=== PATIENT | male | born 1960 | race Caucasian/White ===

== ENCOUNTER 2017-11-30 03:13 | Inpatient (IN) | payer OTHER ==
[~2017-11-30] VITALS: Ht 170.2 cm; Wt 66.7 kg
--- NOTE | ~2017-11-30 | EKG ---
[place] [address] [facility] [place] [address] ELECTROCARDIOGRAM REPORT Name: KENA JACKSON Room #: 200-I ADM IN M.R.#: [id number] Admission: 11/30/17 Attend Phys: Jay Hutchins DO Discharge: Date of : 58 Report #: [id number] THIS REPORT FOR: //name// [facility] ED Test Date: 2017-11-30 Test Time: 03:22:45 Pat Name: KENA JACKSON Department: Room: 200 Gender: M Md Pediatric Allergist: SILVIA : 1960 Requested By: Sindy Cruz Order Number: [id number] MD: Tj Valero Measurements Intervals [place] Rate: 108 P: 79 TX: 127 QRS: -71 QRSD: 96 T: 107 QT: 346 QTc: 464 Interpretive Statements Sinus tachycardia Multiple ventricular premature complexes Inferior infarct, old Probable lateral infarct, age indeterminate Compared to ECG 04/25/2016 07:19:52 Heart rate has increased Electronically Signed On 11-30-2017 9:05:51 [employer]ARN[employer] by Tj Valero [email or web address] <ELECTRONICALLY SIGNED> By: Tj Valero MD, [facility] 11/30/1705 032 1 Tj Valero MD, [facility] /EPI
[~2017-11-30 03:13] MED LIST: ACETAMINOPHEN325 M1 PO; APAP500; APAP500 PO; ASPIRIN81 M2 PO; ATROVENT HFA INH; ATROVENT HFA14 GM INH; CARVEDILOL6.25 MG PO; CRESTOR10 MG PO; CRESTOR40 MG PO; FISH OIL 1,0001 EAC8 PO; FISH OIL 500 M1 EAC1 PO; FISH OIL 500 M1 EAC2 PO; IMDUR 60 MG TAB60 M1 PO; LIPITOR40 MG PO; LISINOPRIL10 MG PO; LISINOPRIL5 MG PO; LYRICA300 MG PO; MS CONTIN15 MG PO; NITROGLYCERIN0.4 MG SUBLING; NITROQUICK0.4 MG; OMEGA-3100 MG PO; PERCOCET 10-321 EAC1 PO; PERCOCET 10-321 EACH PO; PERCOCET 5-3251 EACH PO; PLAVIX 75 MG TA75 M1 PO; PLAVIX 75 MG TA75 MG PO; PREDNISONE 10 M10 M1 PO; PRILOSEC 20 MG20 MG PO; RANEXA500 MG PO; RANOLAZINE PO; RENEXA; SPIRIVA INH; TESSALON200 MG PO; TOPROL XL25 MG PO; TRAMADOL 50 MG50 MG PO; ZOFRAN4 MG PO; ZOLOFT100 MG PO
[2017-11-30 03:26] VITALS: BP 130/82
[2017-11-30 03:33] LABS: HEMATOCRIT 37.7 % (42.0-52.0); HEMOGLOBIN 13.1 gm/dL (14.0-18.0); MCH 31.8 pg (26.0-34.0); MCHC 34.8 g/dL (28.0-37.0); MCV 91.3 fL (80.0-100.0); PLATELET COUNT 263 thou/uL (150-400); RBC 4.13 mil/uL (4.50-6.00); RDW 13.8 % (10.5-14.5); WBC 6.9 thou/uL (4.0-11.0)
[2017-11-30 03:35] LABS: ANION GAP 11 mmol/L (7-16); BUN 9 mg/dL (7-18); CALCIUM 9.2 mg/dL (8.5-10.1); CHLORIDE 103 mmol/L (98-107); CO2 24 mmol/L (21-32); GLUCOSE 87 mg/dL (74-106); POTASSIUM 3.8 mmol/L (3.5-5.1); SODIUM 138 mmol/L (136-145)
[2017-11-30] MEDS ORDERED: TOPROL XL25 MG PO (03:37)
[2017-11-30 03:44] LABS: TROPONIN-I < 0.04 ng/mL (<0.06)
[2017-11-30 04:07] VITALS: BP 96/57
[2017-11-30 04:09] LABS: PROTIME 10.6 Seconds (9.3-11.4)
[2017-11-30 04:50] LABS: ABSOLUTE NEUTROPHILS 3.8 thou/uL (1.4-8.2); ANISOCYTOSIS SLIGHT; MYELOCYTES 1 %
[2017-11-30 04:54] VITALS: BP 96/57
[2017-11-30 05:11] VITALS: BP 118/83
[2017-11-30 09:56] LABS: CHOLESTEROL 209 mg/dL (<200); HDL CHOLESTEROL 39 mg/dL (>40); LDL CHOLESTEROL 148 mg/dL (<100); TC:HDL 5.4 Ratio (Not establshd); TRIGLYCERIDE 111 mg/dL (<150); TROPONIN-I < 0.04 ng/mL (<0.06); VLDL 22 mg/dL (<40)
[2017-11-30 11:09] VITALS: BP 111/59
[2017-11-30 13:42] VITALS: BP 117/76
[2017-11-30 17:12] LABS: GLYCOHEMOGLOBIN (HGB A1C) 5.1 % (4.8-5.6)
[2018-08-11] MEDS ORDERED: TOPROL XL25 MG PO (20:08)
== END 2017-11-30 16:00 | disposition home or self-care (01) | DRG 313 ==
LOC: ER 03:13 → EROBS 04:04 → 2N 04:58
PROVIDERS: Emergency Medicine; Nurse Practitioner Acute Care
DX: R07.89 Other chest pain (principal); I10 Essential (primary) hypertension; I25.10 Atherosclerotic heart disease of native coronary artery without angina pectoris; J44.9 Chronic obstructive pulmonary disease, unspecified; E78.00 Pure hypercholesterolemia, unspecified; F41.9 Anxiety disorder, unspecified; F17.210 Nicotine dependence, cigarettes, uncomplicated; I25.2 Old myocardial infarction; Z95.5 Presence of coronary angioplasty implant and graft; Z86.73 Personal history of transient ischemic attack (TIA), and cerebral infarction without residual deficits; Z95.810 Presence of automatic (implantable) cardiac defibrillator; Z79.82 Long term (current) use of aspirin; Z79.899 Other long term (current) drug therapy; Z91.14 Patient's other noncompliance with medication regimen; Z88.8 Allergy status to other drugs, medicaments and biological substances; Z82.49 Family history of ischemic heart disease and other diseases of the circulatory system; Z80.8 Family history of malignant neoplasm of other organs or systems
CPT/HCPCS: 10081

== ENCOUNTER 2018-02-06 20:55 | Emergency (ER) | payer OTHER ==
[~2018-02-06] VITALS: Ht 170.2 cm; Wt 70.3 kg
--- NOTE | ~2018-02-06 | EKG ---
[place] [address] [facility] [place] [address] ELECTROCARDIOGRAM REPORT Name: KENA JACKSON Room #: [facility] [id number] Admission: 02/06/18 Attend Phys: Discharge: 02/07/18 Date of : 58 Report #: [id number] THIS REPORT FOR: //name// [facility] ED Test Date: 2018-02-06 Test Time: 21:00:43 Pat Name: KENA JACKSON Department: Room: Gender: M Obiee Lead Developer: MZOOK : 1960 Requested By: Migue Abreu Order Number: [id number] MD: Tj Valero Measurements Intervals [place] Rate: 105 P: 56 SC: 130 QRS: -67 QRSD: 97 T: 87 QT: 339 QTc: 449 Interpretive Statements Sinus tachycardia Ventricular premature complex Inferior-posterior infarct, old Baseline wander in lead(s) V2 Compared to ECG 11/30/2017 03:22:45 No significant changes Electronically Signed On 02-08-2018 13:09:07 CDT by Tj Valero [email or web address] <ELECTRONICALLY SIGNED> By: Tj Valero MD, [facility] 02/08/18 1309 99 99 Tj Valero MD, FAC /EPI
[2018-02-06 21:17] LABS: RDW 13.4 % (10.5-14.5); WBC 8.8 thou/uL (4.0-11.0)
[2018-02-06 21:23] LABS: HEMATOCRIT 38.7 % (42.0-52.0); HEMOGLOBIN 13.2 gm/dL (14.0-18.0); MCH 30.9 pg (26.0-34.0); MCHC 34.2 g/dL (28.0-37.0); MCV 90.4 fL (80.0-100.0); PLATELET COUNT 329 thou/uL (150-400); RBC 4.28 mil/uL (4.50-6.00)
[2018-02-06 21:25] LABS: ANION GAP 12 mmol/L (7-16); BUN 12 mg/dL (7-18); CALCIUM 9.8 mg/dL (8.5-10.1); CHLORIDE 100 mmol/L (98-107); CO2 27 mmol/L (21-32); GLUCOSE 89 mg/dL (74-106); POTASSIUM 4.1 mmol/L (3.5-5.1); SODIUM 139 mmol/L (136-145)
[2018-02-06 21:34] LABS: TROPONIN-I < 0.04 ng/mL (<0.06)
[2018-02-06 21:56] LABS: AMP/METHAMP Negative (Negative); BARBITURATES Negative (Negative); BENZODIAZEPINES Negative (Negative); COCAINE Negative (Negative); METHADONE Negative (Negative); OPIATES Negative (Negative); PCP Negative (Negative)
[2018-02-06 22:00] LABS: ABSOLUTE NEUTROPHILS 5.5 thou/uL (1.4-8.2); ANISOCYTOSIS SLIGHT
[2018-02-07 00:30] VITALS: BP 124/69
[2018-08-11] MEDS ORDERED: TOPROL XL25 MG PO (20:08)
== END 2018-02-07 00:32 | disposition home or self-care (01) ==
LOC: ER 20:55
PROVIDERS: Emergency Medicine
DX: F41.9 Anxiety disorder, unspecified (principal); R07.89 Other chest pain; I10 Essential (primary) hypertension; J44.9 Chronic obstructive pulmonary disease, unspecified; F17.210 Nicotine dependence, cigarettes, uncomplicated; F10.99 Alcohol use, unspecified with unspecified alcohol-induced disorder; Z86.73 Personal history of transient ischemic attack (TIA), and cerebral infarction without residual deficits; Z95.5 Presence of coronary angioplasty implant and graft; Z88.6 Allergy status to analgesic agent; Z88.8 Allergy status to other drugs, medicaments and biological substances

== ENCOUNTER 2018-02-15 16:50 | Inpatient (IN) | payer OTHER ==
[~2018-02-15] VITALS: Ht 170.2 cm; Wt 77.2 kg
--- NOTE | ~2018-02-15 | HC ---
[facility] [address] [place] [address] CONSULTATION Name: KENA JACKSON Room #: 513-P [facility] IN M.R.#: [id number] Admission: 02/15/18 Attend Phys: Atif Capone MD Discharge: 02/23/18 Date of : 58 Report #: [id number] THIS REPORT FOR: //name// CC: Atif Capone [facility] unknown DATE OF SERVICE: 02/16/2018 HISTORY AND PHYSICAL/POSTADMISSION PHYSICIAN EVALUATION HISTORY OF PRESENT ILLNESS: The patient is a 57-year-old white male who was admitted to [facility] 02/09/2018 with left-sided weakness. He was diagnosed with an acute CVA. CT of the head was negative. He declined an MRI because he has permanent pacemaker. He was noted to have left-sided weakness with a decline in his premorbid functional status. This is actually his third stroke and he notes he has had them within the last year. He did receive TPA earlier in February of 2017. Seen by Cardiology and their recommendations were for an outpatient 30-day event monitor. He has been transferred from [facility] to [facility] for acute in-hospital inpatient rehabilitation. PAST MEDICAL HISTORY: There prior strokes within the last year or so as noted above. He has a history of coronary artery disease with multiple stents, ischemic cardiomyopathy with AICD. He has hypertension, hyperlipidemia, history of polysubstance abuse, and history of asthma. There is a note of some anxiety and he has degenerative arthritis. MEDICATIONS: Please see the full medication listing on admission. Each of these was individually reconciled and includes his vitamins herbals and supplements. HABITS: Positive tobacco, 2-3 cigarettes per day. Denies alcohol use. SOCIAL HISTORY: Lives alone in a [place] of the [facility]. He does have a couple of stairs to enter. He was previously independent with ADLs, modified independent for mobility with a single point cane. Has a daughter near him in the [facility] who was involved. REVIEW OF SYSTEMS: Did not offer any current complaints of chest pain, shortness of breath, or abdominal discomfort. He notes he has some left-sided weakness and some mild far left lateral visual field decrease. PHYSICAL EXAMINATION: GENERAL: The patient is a pleasant, somewhat verbose 57-year-old white male in no obvious distress. VITAL SIGNS: Temperature is 36.3, pulse 81, respirations 18, blood pressure [facility] [address] [place] [address] CONSULTATION Name: KENA JACKSON Room #: 513-P DIS IN M.R.#: [id number] Admission: 02/15/18 Attend Phys: Atif Capone MD Discharge: 02/23/18 Date of : 58 Report #: [id number] 111/79. The patient follows basic commands without difficulty. No obvious difficulties with word finding. EOMs are full. CHEST: Sounded clear to auscultation. CARDIOVASCULAR: Regular rate and rhythm. ABDOMEN: Bowel sounds positive, nontender. GENITOURINARY AND RECTAL: Deferred. NEUROLOGIC: Cranial nerves EOMs are full. Appears to have mild decreased with far lateral vision to the left upon testing visual june. HEENT: Facies are symmetric. EXTREMITIES: He has functional range of motion of both upper and lower extremities. Strength of the right upper and right lower extremity are full 5/5, left upper extremity is probably a 4 to 4-/5 left lower extremity is 4+/5 to 5-/5. DTRs are 1. Sensory examination appeared to be intact to simultaneous stimulation. He does quite well with basic functional mobility skills and nursing noted that he did well, getting up for them as well. ASSESSMENT: A 57-year-old right-handed white male with the following problem list: 1. Acute cerebrovascular accident with left-sided weakness, status post TPA on 02/09/2018 with improvement. 2. Mild left far lateral vision decrease. 3. Coronary artery disease with multiple stents. 4. Ischemic cardiomyopathy with automatic implantable cardioverter-defibrillator present. 5. Hypertension. 6. Hyperlipidemia. 7. History of polysubstance abuse. 8. History of asthma. 9. History of tobacco abuse. PLAN: The patient is admitted for in-hospital inpatient rehabilitation. From a post-admission physician evaluation perspective, there are no relevant changes since the preadmission screening. Please see the above review of prior and current medical and functional conditions and comorbidities. Please see the patient's previous and current functional status. As far as risk of complications, the patient has the above noted multiple medical comorbidities. Initial plan of care involves the interdisciplinary acute inpatient rehabilitation program with the goal of maximizing his functional independence, so that he can hopefully return back to his prior living situation. Measurable functional goals would be for him to become modified independent with transfers, mobility, ADLs and ideally to reach the single point cane level, so that he can return back to the home setting. Prognosis is reasonably good. Estimated length of stay is at this point approximately 1 week. Potential barriers would include his multiple medical comorbidities and decreased functional status. Discussion with the patient and with nursing. He has been getting up some on [facility] [address] [place] [address] CONSULTATION Name: KENA JACKSON Room #: 513-P [facility] IN Narendra#: [id number] Admission: 02/15/18 Attend Phys: Atif Capone MD Discharge: 02/23/18 Date of : 58 Report #: [id number] his own and does not want to call for assistance. He apparently was allowed to be up independently in his room over at [place]. Nursing indicated he did quite well. I will have the therapies do an evaluation and if he is cleared by the rehab therapy team. He can be modified independent in the room. I had a discussion with the patient regarding discharge plan as well. His goal is to be independent at a cane level as he knows, there are a lot of walks around the [facility], where he lives and he indicates that using a walker would be difficult. We set a tentative discharge date of 1 week with a plan for discharge next Wednesday. ADDENDUM: The overall plan of care is based on the preadmission screen, post-admission physician evaluation and information garnered from therapy assessments. 1. Estimated length of stay is one week as noted above. 2. Medical prognosis is reasonably good. 3. Anticipated interventions includes the interdisciplinary acute inpatient rehabilitation program with the goal of maximizing his functional independence, so he can hopefully return back to his prior living situation. 4. Anticipated functional outcomes would be for him to become modified independent and ambulatory at a cane level. 5. Discharge destination is back to the home setting as noted above. 6. Expected therapy by discipline includes PT and OT 1 to 1-1/2 hours per day each five days a week along with speech therapy one half to one hour per day, 5 days a week throughout the duration of the acute inpatient rehabilitation stay. We will need to see if he continues to need the speech therapy. May be able to transition more to just having PT and OT work with him. I have asked the hospitalist group to follow regarding medical issues. We will need to work outpatient event monitoring once he is ready for discharge. This may need to be set up through his doctor in the [facility]. <ELECTRONICALLY SIGNED> By: Atif Capone MD 02/22/18 1030 0750 1639 Atif Capone MD /[facility]
--- NOTE | ~2018-02-15 | HC ---
[facility] [address] [place] [address] CONSULTATION Name: KENA JACKSON Room #: 513-P [facility] IN M.R.#: [id number] Admission: 02/15/18 Attend Phys: Atif Capone MD Discharge: 02/23/18 Date of : 58 Report #: [id number] THIS REPORT FOR: //name// CC: Atif Capone [facility] unknown DATE OF SERVICE: 02/19/2018 NEUROBEHAVIORAL STATUS EXAM ATTENDING PHYSICIAN: Atif Capone MD EEG TECHNICIAN: Floyd Gandhi, PhD CLINICAL PRESENTATION: The patient is a 57-year-old male admitted to the rehab unit at [facility] for a comprehensive inpatient rehabilitation program to improve functional mobility, activities of daily living and self-care and mental status secondary to deficits from a cerebrovascular accident with left hemiparesis. The patient is status post TPA on February 09. His assessment on admission included a mild left lateral visual field decrease, coronary artery disease with multiple stents, ischemic cardiomyopathy with automatic implantable cardioverter defibrillator, hypertension, hyperlipidemia, history of polysubstance abuse, asthma and tobacco abuse. The patient describes problems with sleep with intermittent nightmares that are associated with the of 3-1/2-year-old grandson who had Down syndrome. The patient has 1 daughter and 2 living grandchildren. 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 TECHNIQUES UTILIZED: Clinical interview, review of medical records, staff consultation and behavioral observation, attempts at a mini mental status exam. EXAMINATION FINDINGS: The patient was alert, but irritable during the assessment. He presents as fidgety and restless, impulsive and and hostile. Patient has decreased patience and reduced tolerance for frustration. He reports having a longstanding history of methamphetamine abuse. His grandson reportedly in June 2017 and he relapsed to methamphetamine use until September of 2017. Currently, the patient reports being free from meth use or substance abuse. However, he reports concern about relapse and is wanting to acquire treatment to maintain sobriety. Psychiatric assessment suggests a diagnosis of posttraumatic stress disorder and amphetamine dependence in early remission. The patient reports difficulty with sleep, tiredness and fatigue, anxiety and depression. He does not report difficulty with appetite. He was angry and irritable during the interview with intermittent apology for his irritability. [address] [address] CONSULTATION Name: KENA JACKSON ISADORA Room #: 513-P [facility] IN M.R.#: [id number] Admission: 02/15/18 Attend Phys: Atif Capone MD Discharge: 02/23/18 Date of : 58 Report #: [id number] The patient indicates being right handed and having a left hemiparesis as a result of his stroke. This could indicate some variability in mood with decreased inhibition and increased impulsivity. DIAGNOSTIC IMPRESSION: Neurocognitive disorder due to vascular disease, with irritability and decreased tolerance for frustration -- extent to be determined. Posttraumatic stress disorder. Unspecified anxiety disorder. Methamphetamine abuse -- by history -- early abstinence. RECOMMENDATIONS: The patient appears easily frustrated and overwhelmed at this time. Distraction and redirection may be of some benefit in attempts to maintain compliance. Most likely he will need a modified rehabilitation program that includes negotiation to allow him opportunities for control to improve compliance. Continued psychiatric management of medication for mood and behavior will be necessary to maintain his cooperation. Following discharge, he will require a treatment program that will be focused on substance abuse, depression/anxiety, and irritability. Psychological counseling will be of benefit to assist in overall adjustment to the stress of losing his grandson and adjusting to his current medical condition following his stroke. Follow up neuropsych evaluation will be of benefit to clarify neurocognitive status. At this time, the patient lacks frustration tolerance necessary to complete an evaluation. Thank you very much for allowing me to provide the consultation on this patient. <ELECTRONICALLY SIGNED> By: Floyd Gandhi, PhD 02/21/18 1833 1333 1443 Floyd Gandhi, PhD /nt
[2018-02-15] MEDS ORDERED: ASA5UEC PO (19:55)
[2018-02-15] MEDS ORDERED: XANAX 0.5 MG0.5 MG PO (19:55)
[2018-02-15] MEDS ORDERED: PLAVIX 75 MG TA75 M1 PO (19:56)
[2018-02-15] MEDS ORDERED: PERCOCET 7.5-31 EACH PO (19:57)
[2018-02-15] MEDS ORDERED: TOPROL XL25 MG PO (19:57)
[2018-02-15] MEDS ORDERED: RANEXA500 MG PO (19:58)
[2018-02-15] MEDS ORDERED: LYRICA300 MG PO (19:58)
[2018-02-15] MEDS ORDERED: CRESTOR40 MG PO (19:59)
[2018-02-15 20:00] VITALS: BP 110/70
[2018-02-15] MEDS ORDERED: SPIRIVA INH (20:00)
[2018-02-15] MEDS ORDERED: TRAZODONE HCL50 MG PO (20:01)
[2018-02-16 07:22] VITALS: BP 111/79
[2018-02-16 08:49] LABS: HEMATOCRIT 36.3 % (42.0-52.0); HEMOGLOBIN 12.2 gm/dL (14.0-18.0); MCH 30.3 pg (26.0-34.0); MCHC 33.6 g/dL (28.0-37.0); MCV 90.4 fL (80.0-100.0); RBC 4.02 mil/uL (4.50-6.00); RDW 13.5 % (10.5-14.5); WBC 6.9 thou/uL (4.0-11.0)
[2018-02-16 08:58] LABS: CALCIUM 9.2 mg/dL (8.5-10.1); POTASSIUM 4.3 mmol/L (3.5-5.1)
[2018-02-16 18:05] LABS: FOLIC ACID 10.4 ng/mL (8.6-58.9)
[2018-02-16 19:00] VITALS: BP 118/75
[2018-02-17 07:40] VITALS: BP 102/74
[2018-02-17 20:09] VITALS: BP 113/76
[2018-02-18 07:00] VITALS: BP 108/75
[2018-02-18 19:53] VITALS: BP 125/73
[2018-02-19 08:15] VITALS: BP 114/55
[2018-02-19 19:33] VITALS: BP 123/78
[2018-02-20 08:00] VITALS: BP 112/62
[2018-02-20 19:35] VITALS: BP 115/73
[2018-02-21 07:20] VITALS: BP 100/60
[2018-02-21 20:05] VITALS: BP 115/73
[2018-02-22 08:15] VITALS: BP 104/58
[2018-02-22 20:45] VITALS: BP 100/48
[2018-02-23] MEDS ORDERED: VITAMIN B-12500 MCG PO (11:38)
[2018-02-23] MEDS ORDERED: ERGOCALCIF50000 UNIT PO (11:38)
[2018-02-23] MEDS ORDERED: RANEXA500 MG PO (11:38)
[2018-02-23] MEDS ORDERED: PLAVIX 75 MG TA75 M1 PO (11:38)
[2018-02-23] MEDS ORDERED: TOPROL XL25 MG PO (11:38)
[2018-02-23] MEDS ORDERED: CRESTOR40 MG PO (11:38)
[2018-02-23] MEDS ORDERED: SPIRIVA INH (11:38)
[2018-02-23] MEDS ORDERED: PRAZOSIN HCL1 MG PO (11:39)
[2018-02-23 12:00] VITALS: BP 121/65
[2018-02-23 12:33] VITALS: BP 121/65
== END 2018-02-23 12:35 | disposition home or self-care (01) | DRG 56 ==
PROVIDERS: Physical Medicine & Rehabilitation
DX: G81.94 Hemiplegia, unspecified affecting left nondominant side (principal); I63.9 Cerebral infarction, unspecified; I25.10 Atherosclerotic heart disease of native coronary artery without angina pectoris; I25.5 Ischemic cardiomyopathy; I10 Essential (primary) hypertension; E78.5 Hyperlipidemia, unspecified; J45.909 Unspecified asthma, uncomplicated; F41.9 Anxiety disorder, unspecified; M19.90 Unspecified osteoarthritis, unspecified site; F17.210 Nicotine dependence, cigarettes, uncomplicated; R41.9 Unspecified symptoms and signs involving cognitive functions and awareness; G62.9 Polyneuropathy, unspecified; F32.9 Major depressive disorder, single episode, unspecified; R53.81 Other malaise; E53.8 Deficiency of other specified B group vitamins; E55.9 Vitamin D deficiency, unspecified; G47.00 Insomnia, unspecified; F43.10 Post-traumatic stress disorder, unspecified; F15.21 Other stimulant dependence, in remission; Z95.5 Presence of coronary angioplasty implant and graft; Z95.810 Presence of automatic (implantable) cardiac defibrillator; Z88.1 Allergy status to other antibiotic agents; Z79.82 Long term (current) use of aspirin; Z79.899 Other long term (current) drug therapy; Z60.2 Problems related to living alone; Z88.8 Allergy status to other drugs, medicaments and biological substances
CPT/HCPCS: 10112

== ENCOUNTER 2018-03-19 18:33 | Inpatient (IN) | payer OTHER ==
[~2018-03-19] VITALS: Ht 170.2 cm; Wt 68.0 kg
--- NOTE | ~2018-03-19 | EKG ---
[place] [address] [facility] [place] [address] ELECTROCARDIOGRAM REPORT Name: KENA JACKSON Room #: 349-I ADM IN M.R.#: [id number] Admission: 03/19/18 Attend Phys: Nolan Jiménez Discharge: Date of : 58 Report #: [id number] THIS REPORT FOR: //name// [facility] ED Test Date: 2018-03-19 Test Time: 18:51:02 Pat Name: KENA JACKSON Department: Room: 349 Gender: M Crayon Molding Machine Operator: Roque CAMERON : 1960 Requested By: Sindy Cruz Order Number: [id number] MD: Tj Valero Measurements Intervals [place] Rate: 86 P: 25 TX: 141 QRS: -66 QRSD: 115 T: 102 QT: 390 QTc: 467 Interpretive Statements Sinus rhythm Atrial premature complex Left axis deviation Inferior infarct, old Baseline wander in lead(s) V2 Compared to ECG 02/06/2018 21:00:43 Atrial premature complex(es) now present Sinus tachycardia no longer present Ventricular premature complex(es) no longer present Electronically Signed On 03-20-2018 12:08:36 CDT by Tj Valero [email or web address] <ELECTRONICALLY SIGNED> By: Tj Valero MD, [facility] 03/20/18 1208 50 50 Tj Valero MD, FAC /EPI
[~2018-03-19 18:33] MED LIST changes: +ASA5UEC PO; +ERGOCALCIF50000 UNIT PO; +PERCOCET 7.5-31 EACH PO; +PRAZOSIN HCL1 MG PO; +TRAZODONE HCL50 MG PO; +VITAMIN B-12500 MCG PO; +XANAX 0.5 MG0.5 MG PO
[2018-03-19 18:45] VITALS: BP 127/72
[2018-03-19 19:06] LABS: ABSOLUTE NEUTROPHILS 5.5 thou/uL (1.4-8.2); BASOPHILS 0.6 % (0.0-2.0); EOSINOPHILS 8.1 % (0.0-3.0); HEMATOCRIT 36.5 % (42.0-52.0); HEMOGLOBIN 12.5 gm/dL (14.0-18.0); LYMPHOCYTES 15.1 % (24.0-44.0); MCH 30.6 pg (26.0-34.0); MCHC 34.1 g/dL (28.0-37.0); MCV 89.6 fL (80.0-100.0); MONOCYTES 7.8 % (1.0-8.0); POLYS 68.4 % (36.0-66.0); RBC 4.07 mil/uL (4.50-6.00); WBC 8.1 thou/uL (4.0-11.0)
[2018-03-19 19:07] LABS: PLATELET COUNT 249 thou/uL (150-400)
[2018-03-19 19:12] LABS: POC CA IONIZED 4.5 mg/dL (4.5-5.3); POC CREATININE 1.3 mg/dL (0.6-1.3); POC HEMOGLOBIN 13.3 g/dL (14.0-18.0)
[2018-03-19 20:25] VITALS: BP 127/75
[2018-03-19 21:15] VITALS: BP 119/85
[2018-03-19 21:36] VITALS: BP 125/66
[2018-03-19 21:37] VITALS: BP 125/66
[2018-03-19 22:15] VITALS: BP 119/85
[2018-03-20 00:16] VITALS: BP 91/57
[2018-03-20 10:04] LABS: AMP/METHAMP Negative (Negative); BARBITURATES Negative (Negative); BENZODIAZEPINES POSITIVE (Negative); COCAINE Negative (Negative); METHADONE Negative (Negative); OPIATES POSITIVE (Negative); PCP Negative (Negative)
[2018-03-20 11:08] LABS: CHOLESTEROL 129 mg/dL (<200); HDL CHOLESTEROL 25 mg/dL (>40); LDL CHOLESTEROL 65 mg/dL (<100); SERUM ASSESSMENT Clear; TC:HDL 5.2 Ratio (Not establshd); TRIGLYCERIDE 196 mg/dL (<150); VLDL 39 mg/dL (<40)
[2018-03-20 11:38] VITALS: BP 99/41
[2018-03-20 15:09] LABS: GLYCOHEMOGLOBIN (HGB A1C) 5.1 % (4.8-5.6)
[2018-03-20 16:24] VITALS: BP 98/53
[2018-03-20 20:15] VITALS: BP 108/72
[2018-03-21 05:15] VITALS: BP 84/49
[2018-03-21 07:59] VITALS: BP 157/68
[2018-03-21 09:43] VITALS: BP 101/43
[2018-03-21 17:11] VITALS: BP 111/76
[2018-03-21 19:00] VITALS: BP 90/47
[2018-03-22 04:40] VITALS: BP 89/49
[2018-03-22 07:53] VITALS: BP 92/61
[2018-03-22] MEDS ORDERED: FOLIC ACID1 MG PO (09:55)
[2018-03-22] MEDS ORDERED: VITAMIN B-1100 M2 PO (09:55)
== END 2018-03-22 16:30 | DRG 74 ==
LOC: ER 18:33 → 3W 20:12 → EROBS 20:12 → 3W 21:37
PROVIDERS: Emergency Medicine; Hospitalist
PROC: 4A00X4Z Measurement of Central Nervous Electrical Activity, External Approach (ICD-10-PCS; principal; 2018-03-21)
DX: G62.9 Polyneuropathy, unspecified (principal); R20.2 Paresthesia of skin; I10 Essential (primary) hypertension; E78.00 Pure hypercholesterolemia, unspecified; F10.10 Alcohol abuse, uncomplicated; F17.210 Nicotine dependence, cigarettes, uncomplicated; F15.10 Other stimulant abuse, uncomplicated; I25.2 Old myocardial infarction; Z86.73 Personal history of transient ischemic attack (TIA), and cerebral infarction without residual deficits; Z95.810 Presence of automatic (implantable) cardiac defibrillator; Z79.02 Long term (current) use of antithrombotics/antiplatelets; Z79.82 Long term (current) use of aspirin; Z79.899 Other long term (current) drug therapy; Z88.8 Allergy status to other drugs, medicaments and biological substances
CPT/HCPCS: 10779; 10879

== ENCOUNTER 2018-11-18 17:08 | Inpatient (IN) | payer OTHER ==
[~2018-11-18] VITALS: Ht 170.2 cm; Wt 68.8 kg
--- NOTE | ~2018-11-18 | EKG ---
[address] [address] ELECTROCARDIOGRAM REPORT Name: KENA JACKSON Room #: 204-P ADM IN M.R.#: [id number] Admission: 11/18/18 Attend Phys: Nolan Jiménez Discharge: Date of : 58 Report #: [id number] THIS REPORT FOR: //name// [facility] ED Test Date: 2018-11-18 Test Time: 17:13:09 Pat Name: KENA MAKUGHLIN Department: Room: 204 Gender: M Backfiller: LEATHA : 1960 Requested By: Marlon Alfaro Order Number: [id number] MD: Robert Westfall Measurements Intervals [place] Rate: 112 P: 61 OR: 123 QRS: -67 QRSD: 93 T: 85 QT: 362 QTc: 494 Interpretive Statements Sinus tachycardia Ventricular bigeminy Probable left atrial enlargement Abnormal R-wave progression, early transition Inferior infarct, old Myocardial infarct finding now present T-wave abnormality now present Possible ischemia now present Sinus rhythm no longer present Left anterior fascicular block no longer present Electronically Signed On 11-18-2018 20:23:23 COOK HOUSE SUPERVISOR by Robert Westfall [email or web address] <ELECTRONICALLY SIGNED> By: Robert Westfall MD 11/18/182022 12 12 Robert Westfall MD /EPI
[~2018-11-18 17:08] MED LIST changes: +FOLIC ACID1 MG PO; +VITAMIN B-1100 M2 PO
[2018-11-18 17:14] VITALS: BP 115/76
[2018-11-18 17:43] LABS: HEMATOCRIT 35.4 % (42.0-52.0); HEMOGLOBIN 12.3 gm/dL (14.0-18.0); MCHC 34.6 g/dL (28.0-37.0); MCV 86.8 fL (80.0-100.0); PLATELET COUNT 307 thou/uL (150-400); RBC 4.08 mil/uL (4.50-6.00); WBC 6.1 thou/uL (4.0-11.0)
[2018-11-18 17:48] LABS: ANION GAP 12 mmol/L (7-16); BUN 13 mg/dL (7-18); CALCIUM 9.4 mg/dL (8.5-10.1); CHLORIDE 98 mmol/L (98-107); CO2 26 mmol/L (21-32); GLUCOSE 101 mg/dL (74-106); POTASSIUM 3.9 mmol/L (3.5-5.1); SODIUM 136 mmol/L (136-145)
[2018-11-18 17:57] LABS: ALBUMIN 3.4 g/dL (3.4-5.0); SALICYLATE 3.8 mg/dL (2.8-20.0); SGOT 30 U/L (15-37); SGPT 26 U/L (30-65); TOTAL BILIRUBIN 0.4 mg/dL (<0.1-1.0); TOTAL PROTEIN 7.9 g/dL (6.4-8.2); TROPONIN-I <0.06 ng/mL (<0.06)
[2018-11-18 18:05] LABS: ABSOLUTE NEUTROPHILS 3.3 thou/uL (1.4-8.2)
[2018-11-18 18:06] LABS: ANISOCYTOSIS 1+
[2018-11-18 18:57] VITALS: BP 107/49
[2018-11-18 19:30] VITALS: BP 102/36
[2018-11-18 20:11] VITALS: BP 111/62
[2018-11-19 00:10] VITALS: BP 94/48
[2018-11-19 00:14] LABS: URINE BILIRUBIN NEGATIVE (Negative); URINE BLOOD NEGATIVE (Negative); URINE CLARITY CLEAR; URINE COLOR YELLOW; URINE GLUCOSE-RANDOM* NEGATIVE (Negative); URINE KETONES TRACE (Negative); URINE LEUKOCYTES-REFLEX NEGATIVE (Negative); URINE NITRITE-REFLEX NEGATIVE (Negative); URINE PROTEIN (DIPSTICK) NEGATIVE (Negative); URINE SPECIFIC GRAVITY 1.015 (1.005-1.035)
[2018-11-19 00:27] LABS: AMP/METHAMP POSITIVE (Negative); BARBITURATES Negative (Negative); BENZODIAZEPINES Negative (Negative); COCAINE Negative (Negative); METHADONE Negative (Negative); OPIATES Negative (Negative); PCP Negative (Negative)
[2018-11-19 04:37] LABS: ANION GAP 10 mmol/L (7-16); BUN 11 mg/dL (7-18); CALCIUM 8.5 mg/dL (8.5-10.1); CHLORIDE 102 mmol/L (98-107); CO2 26 mmol/L (21-32); CREATININE 0.8 mg/dL (0.7-1.3); GLUCOSE 97 mg/dL (74-106); POTASSIUM 3.2 mmol/L (3.5-5.1); SODIUM 138 mmol/L (136-145)
[2018-11-19 04:38] VITALS: BP 93/49
[2018-11-19 04:47] LABS: ALBUMIN 2.8 g/dL (3.4-5.0); TROPONIN-I <0.06 ng/mL (<0.06)
[2018-11-19 07:10] VITALS: BP 105/54
[2018-11-19 12:31] VITALS: BP 105/54
== END 2018-11-19 13:55 | DRG 313 ==
LOC: ER 17:08 → EROBS 18:28 → 2N 19:52
PROVIDERS: Emergency Medicine; Hospitalist
DX: R07.9 Chest pain, unspecified (principal); I10 Essential (primary) hypertension; E78.00 Pure hypercholesterolemia, unspecified; J44.9 Chronic obstructive pulmonary disease, unspecified; F15.10 Other stimulant abuse, uncomplicated; F17.210 Nicotine dependence, cigarettes, uncomplicated; G89.29 Other chronic pain; Z95.5 Presence of coronary angioplasty implant and graft; I25.2 Old myocardial infarction; Z86.73 Personal history of transient ischemic attack (TIA), and cerebral infarction without residual deficits; Z95.0 Presence of cardiac pacemaker; Z88.6 Allergy status to analgesic agent; Z88.8 Allergy status to other drugs, medicaments and biological substances; Z79.82 Long term (current) use of aspirin; Z79.899 Other long term (current) drug therapy
CPT/HCPCS: 10081

== ENCOUNTER 2019-03-11 19:51 | Inpatient (IN) | payer OTHER ==
[~2019-03-11] VITALS: Ht 175.3 cm; Wt 62.6 kg
--- NOTE | ~2019-03-11 | HC ---
[facility] [address] [place] [address] CONSULTATION Name: KENA JACKSON Room #: 358-P ADM IN M.R.#: [id number] Admission: 03/11/19 ������������������ Attend Phys: Angel Luis Dunbar MD Discharge: ������������������ Date of : 58 Report #: [id number] THIS REPORT FOR: //name// CC: [facility] physician/PCP Angel Luis Dunbar REASON FOR CONSULTATION: Chest pain. The patient is a 58-year-old male. PAST MEDICAL HISTORY: Includes coronary artery disease, status post IN and stents, prior ICD implantation, COPD, hypertension, hyperlipidemia, gastritis, CVA. HISTORY OF PRESENT ILLNESS: I saw the patient back in 07/2018 when he came in with chest discomfort. He has history of drug abuse including meth. When I saw him last time, he had been discharged from [facility] and sent to rehab facility, but did not like the living situation; therefore, he left AMA and came to the ER. At that time, his chest pain did not seem cardiac in nature. He comes back today after having used meth. He has been having some chest pain that is pretty much there all the time, 7/10 in intensity, is at the chest and is not really alleviated with rest or exertion. REVIEW OF SYSTEMS: A 12-point review of systems. GENERAL: No fevers or chills. HEENT: No blurred vision. CARDIOVASCULAR: As above. PULMONARY: No productive cough. GASTROINTESTINAL: No nausea or vomiting. GENITOURINARY: No dysuria. MUSCULOSKELETAL: No myalgias or arthralgias. ENDOCRINE: No heat or cold intolerance. NEUROLOGIC: As mentioned above. SOCIAL HISTORY: He does use meth and tobacco, last used meth a few days ago. FAMILY HISTORY: Noncontributory. ALLERGIES: INCLUDE ALBUTEROL AND IBUPROFEN. MEDICATIONS: Have been reviewed. PHYSICAL EXAMINATION: VITAL SIGNS: Temperature is 36.8, pulse 89, respiration 17, blood pressure 126/72, sats are 96%. GENERAL: He is in no acute distress. He is somewhat irritable and agitated. HEENT: Oropharynx is clear. Poor dentition. Sclerae are anicteric. [facility] [address] [place] [address] CONSULTATION Name: KENA JACKSON ISADORA Room #: 358-P ADM IN M.R.#: [id number] Admission: 03/11/19 ������������������ Attend Phys: Angel Luis Dunbar MD Discharge: ������������������ Date of : 58 Report #: [id number] NECK: Supple, no thyromegaly. HEART: Regular rate and rhythm with no murmurs, rubs, gallops. LUNGS: Clear to auscultation bilaterally. ABDOMEN: Soft, nontender, nondistended with no hepatosplenomegaly. EXTREMITIES: There is no clubbing, cyanosis or edema. NEUROLOGICAL: Cranial nerves 2-12 are intact. His 12-lead EKG, I reviewed, shows sinus rhythm with no ischemic changes and occasional PVCs. His CT of the chest shows no acute process, no PE. His nuclear stress test shows evidence of an old IN with some mild tamanna-infarct ischemia, but no new evidence of ischemia noted. LABORATORY DATA: White count 5.8, hemoglobin 12, platelets 264. Chemistries: Sodium 141, potassium 3.8, BUN 7, creatinine 0.9. His troponins are negative x 3. ASSESSMENT: 1. Noncardiac chest pain. 2. Possible costochondritis. 3. Coronary artery disease, status post myocardial infarction. 4. Ischemic cardiomyopathy. 5. Implantable cardiac defibrillator. 6. Polysubstance. RECOMMENDATION: The patient is a 58-year-old presenting with chest pain that is noncardiac in nature. Given its long duration that is not alleviated, normal troponins, normal EKG, normal CT scan of the chest as well as normal nuclear stress test with evidence of an old inferior IN, I do not believe this chest pain is cardiac in nature. It is possible that he has a component of costochondritis. Perhaps, a course of nonsteroidal anti-inflammatory drugs should be considered. As such, I will sign off. Thank you for allowing me to participate in his care. ��������������������������������������������� ���������������������������������������� By: ��������������������������������������������� 1705 0635 Robert Westfall MD /nt
[2019-03-11 20:09] VITALS: BP 114/51
[2019-03-11 20:24] LABS: BASOPHILS 1.4 % (0.0-2.0); EOSINOPHILS 4.7 % (0.0-3.0); HEMATOCRIT 34.6 % (42.0-52.0); LYMPHOCYTES 29.7 % (24.0-44.0); MCH 30.5 pg (26.0-34.0); MCHC 34.6 g/dL (28.0-37.0); MCV 88.3 fL (80.0-100.0); MONOCYTES 11.9 % (1.0-8.0); PLATELET COUNT 264 thou/uL (150-400); POLYS 52.3 % (36.0-66.0); RBC 3.92 mil/uL (4.50-6.00); RDW 14.8 % (10.5-14.5); WBC 5.8 thou/uL (4.0-11.0)
[2019-03-11 20:34] LABS: ANION GAP 12 mmol/L (7-16); BUN 4 mg/dL (7-18); CALCIUM 9.5 mg/dL (8.5-10.1); CHLORIDE 103 mmol/L (98-107); CO2 26 mmol/L (21-32); CREATININE 0.9 mg/dL (0.7-1.3); GLUCOSE 92 mg/dL (74-106); POTASSIUM 3.4 mmol/L (3.5-5.1); SODIUM 141 mmol/L (136-145)
[2019-03-11 20:43] LABS: TROPONIN-I <0.06 ng/mL (<0.06)
[2019-03-11 21:58] VITALS: BP 114/51
[2019-03-11 22:08] VITALS: BP 99/59
[2019-03-11 22:50] VITALS: BP 122/58; BP 122/85
[2019-03-12 04:22] LABS: ANION GAP 13 mmol/L (7-16); BUN 3 mg/dL (7-18); CHLORIDE 102 mmol/L (98-107); CO2 24 mmol/L (21-32); CREATININE 0.8 mg/dL (0.7-1.3); GLUCOSE 90 mg/dL (74-106); SODIUM 139 mmol/L (136-145)
[2019-03-12 04:29] LABS: TROPONIN-I <0.06 ng/mL (<0.06)
[2019-03-12 04:50] VITALS: BP 128/79
--- NOTE | 2019-03-12 05:54 | NUR ---
PT ARRIVED FROM ER VIA CART WITH WAREHOUSE REPRESENTATIVE. PLACED IN ROOM 358. ADMISSION ASSESEMENTS COMPLETED. PT ALSO ARRIVED TO THE ROOM WITH SECURITY. PT WAS REPORTEDLY ARGUMENTATIVE AND VERBALLY HOSTILE IN ER. PT VERY DROWSY AND HAD TO BE AWOKENED MULTIPLE TIMES TO ANSWER QUESTIONS. PT REFUSED SCD, REFUSED TO SIGN NO FALL CONTRACT AND REFUSED TO HAVE THE BED ALARM TURNED ON. FOOD PROVIDED FOR PT AT HIS REQUEST. PT HAS SLEPT THROUGHOUT THE NIGHT. RELUCTANTLY ALLOWED LAB TO DRAW HIS BLOOD THIS MORNING. DID RATE CHEST DISCOMFORT AT 4/10 WITH RADIATION UP TO LEFT SHOULDER. DENIED ANY OTHER SX. CONTINUE TO MONITOR.
[2019-03-12 07:34] VITALS: BP 95/57
--- NOTE | 2019-03-12 11:42 | NUR ---
care of pt assumed this am @ ~0700. pt noted to be sleeping heavily this am, noted to be irritable when awaken for vs and assessment, refusing parts of vs and requesting to be left to sleep and rn to return later. rn returned at 1000 for assessment. pt awakened to eat his breakfast, take some of his am medications and assessment. pt abrupt, irritable and short in answers to rn. pt very concerned at the where abouts of his cell phone and flaking roll operator, he found them in his clothing in his closet and had some stress relief after finding them. pt denies co pain at this am's assessment. he desired to eat, take his meds, receive a cup of coffee and be left to go back to sleep. pt bed alarm on and rn requested he call staff if he desired to get out of bed for any reason, he said he would call. pt denies soa, n/v/d and no need to void at this time.
[2019-03-12 15:16] VITALS: BP 96/55
[2019-03-12 16:26] LABS: CALCIUM 9.1 mg/dL (8.5-10.1); CREATININE 0.9 mg/dL (0.7-1.3); MAGNESIUM 1.9 mg/dL (1.8-2.4); POTASSIUM 3.8 mmol/L (3.5-5.1)
[2019-03-12 19:18] VITALS: BP 103/52
--- NOTE | 2019-03-12 23:44 | EKG ---
[address] [place] [address] ELECTROCARDIOGRAM REPORT Name: KENA JACKSON Room #: 358-P ADM IN M.R.#: [id number] ������������������ Admission: 03/11/19 ������������������ Attend Phys: Angel Luis Dunbar MD Discharge: ������������������ Date of : 58 Report #: [id number] ����������������������������������������������������������������� [id number] THIS REPORT FOR: //name// [facility] ED Test Date: 2019-03-11 Test Time: 20:01:47 Pat Name: KENA JACKSON Department: Room: 358 Gender: M Nurse Clinician: barbara : 1960 Requested By: Yoanna Sweeney Order Number: [id number] MD: Roberto Juarez Measurements Intervals [place] Rate: 98 P: 70 AR: 129 QRS: -51 QRSD: 96 T: 101 QT: 378 QTc: 483 Interpretive Statements Sinus tachycardia frequent ventricular ectopics Left anterior fascicular block Nonspecific ST/T abnormalities, lateral leads Borderline prolonged QT interval Baseline wander in lead(s) V1 Compared to ECG 11/18/2018 17:13:09 no significant changes Electronically Signed On 03-12-2019 23:43:47 CDT by Roberto Juarez [email or web address] ��������������������������������������������� <ELECTRONICALLY SIGNED> ���������������������������������������� By: Roberto Juarez MD ��������������������������������������������� 03/12/19 2343 00 00 Roberto Juarez MD /EPI
--- NOTE | 2019-03-12 23:54 | EKG ---
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: MELISSA : 1960 Requested By: nAgel Luis Dunbar Order Number: [id number] MD: Roberto Juarez Measurements Intervals [place] Rate: 91 P: 67 [place]: 129 QRS: -69 QRSD: 101 T: 129 QT: 380 QTc: 468 Interpretive Statements Sinus rhythm Ventricular ectopics poor R-wave progression Non specific ST/T wave changes Compared to ECG 11/18/2018 17:13:09 no significant changes Electronically Signed On 03-12-2019 23:54:14 CDT by Roberto Juarez [email or web address] ��������������������������������������������� <ELECTRONICALLY SIGNED> ���������������������������������������� By: Roberto Juarez MD ��������������������������������������������� 03/12/19 0224 0755 0755 Roberto Juarez MD /EPI
[2019-03-13 03:23] VITALS: BP 102/64
--- NOTE | 2019-03-13 03:25 | NUR ---
Patient making slow progress towards outcome goals. Very irritable. No c/o chest pain up to this time. NPO after MN for stress test. Informed of need for urine specimen. Metoprolol held per parameters. Rhythm unchanges sinus with frequent PVC's, Bigem, Trigeminy. Steady gait. Poor personal hygeine, declined to get cleaned up.
--- NOTE | 2019-03-13 05:00 | NUR ---
Patient stormed out of him room demanding to get his water pitcher back, NPO after MN has been fully explained to patient long before MN when Stress test was ordered. States he will drink water out of the faucet if he needs to. Patient calmly informed test may not be done if he drinks now. Patient states he will have a drink and get the test done, voice getting louder and confrontational with staff. Nursing cytotechnologist/cytology supervisor called to unit with security who spoke to patient. Orders received for IVFluids. Patient advised again about urine specimen collection. Xanax given with a small sip of liquids.
--- NOTE | 2019-03-13 06:28 | NUR ---
Patient now asleep. Fluid bolus given.
[2019-03-13 07:17] VITALS: BP 96/44
--- NOTE | 2019-03-13 14:15 | NUR ---
Municipal Engineer sent initial referral to [facility] for ltc placement. Patient likely to discharge today or tomorrow. DP will contact admissions to let them know of incoming referral.
--- NOTE | 2019-03-13 14:15 | NUR ---
ASSESSMENT: CM REVIEWED CHART AND MET WITH PATIENT AT THE BEDSIDE. PT IS ALERT AND ORIENTED X4. CM ATTEMPTED TO ASK PATIENT WHERE HE WAS LIVING PRIOR TO ADMISSION. PT THEN STATED THAT DOES NOT MATTER WHAT MATTERS IS THIS MINUTE FORWARD, AND I WANT TO GO USP CARE SOMEWHERE BECAUSE THAT IS THE ONLY PLACE I HAVE LIVED WHERE I STAY SOBER. PT HAS A HX OF BEING AT [facility] FOR LTC BUT THEN REFUSED TO GO BECAUSE HE DID NOT WANT TO GIVE UP HIS SS CHECK. PT HOWEVER STATES HE DID LIVE THERE AND THEN WAS DISCHARGED ON GOOD TERMS BECAUSE HE WANTED TO LEAVE. PT REQUESTING TO SEE IF HE CAN GO BACK THERE FOR LTC. CM REQUESTED D/C EEG TECHNICIAN TO SEND A REFERRAL FOR [facility] TO SEE IF THEY CAN ACCEPT HIM. PT REPORTS HE IS FULLY INDEPENDENT WITH ADLS AND AMBULATION. PER OUR NOTES PATIENT HAS ALSO LIVED WITH A GIRLFRIEND AT THE [facility] IN THE PAST. PT REPORTS HE HAS BEEN USING METH BUT WANTS TO MOVE FORWARD WITH HIS LIFE AND NO LONGER USE. CM WILL CONTINUE TO FOLLOW TO ASSIST NEEDED.
[2019-03-13 16:17] VITALS: BP 126/72
--- NOTE | 2019-03-13 18:17 | NUR ---
ASSUMED PATIENT CARE AT 0700. A/O X4. HAD NM STRESS TEST. IRRITALE. PAIN MEDS GIVEN. WILL KEEP MONITOR.
[2019-03-13 20:30] VITALS: BP 118/69
[2019-03-14 05:00] VITALS: BP 106/61
--- NOTE | 2019-03-14 05:38 | NUR ---
PT MOOD WAS GOOD OVER THE SHIFT TONIGHT. PT UP AD ANSON AND WAS OUT OF HIS ROOM TO GET SOME COFFEE. ONLY REQUEST FROM PT TONIGHT WAS FOR SOMETHING TO HELP SLEEP. TRAZODONE WAS GIVEN AND PT RESTED UNTIL 0545. NO OTHER ISSUES TONIGHT. PT WAITING ON PLACEMENT. HOURLY ROUNDING.
[2019-03-14 07:14] VITALS: BP 96/50
[2019-03-14 15:40] VITALS: BP 107/61
[2019-03-14] MEDS ORDERED: XANAX 0.5 MG0.5 MG PO (16:29)
[2019-03-14] MEDS ORDERED: TRAZODONE HCL50 MG PO (16:29)
[2019-03-14] MEDS ORDERED: LYRICA300 MG PO (16:29)
[2019-03-14] MEDS ORDERED: RANEXA500 MG PO (16:30)
[2019-03-14] MEDS ORDERED: PLAVIX 75 MG TA75 M1 PO (16:30)
[2019-03-14] MEDS ORDERED: CRESTOR10 MG PO (16:30)
[2019-03-14] MEDS ORDERED: PERCOCET 7.5-31 EACH PO (16:30)
[2019-03-14] MEDS ORDERED: TOPROL XL25 MG PO (16:30)
[2019-03-14] MEDS ORDERED: ASPIRIN81 M2 PO (16:30)
[2019-03-14] MEDS ORDERED: SPIRIVA INH (16:31)
--- NOTE | 2019-03-14 16:54 | NUR ---
on-going assessment: PT CONTINUES TO STATE HE IS NOT GOING TO A RESIDENTAL PROGRAM. PT STATED HE SPOKE WITH HIS DAUGHTER WHO IS CURRENTLY IN [place] BUT LIVES AT THE [facility] AND REPORTS IS HAVING CAR TROUBLE SO SHE WILL NOT BE ABLE TO BE BACK TO UNTIL TOMORROW BUT STATES SHE SAID HE COULD STAY WITH HER. PT ASKING TO STAY ANOTHER DAY UNTIL TOMORROW. CM RELAYED THIS INFORMATION TO ATTENDING AND ATTENDING STATING PATIENT IS MEDICALLY STABLE FOR DISCHARGE TODAY AND DISCHARGE ORDERS WERE PLACED. BEDSIDE NURSE MET WITH PATIENT AND HE GOT UP OUT OF THE BED AGITATED WHEN SHE TOLD HIM DISCHARGE ORDERS WERE IN. PT CAME INTO THE HALLWAY SHOUTING WHERE AM I SUPPOSED TO GO THEN GET ME A MOTEL. CM DISCUSSED CM CAN GET PATIENT A CAB RIDE (VOUCHERED) TO A MOTEL/HOTEL BUT CM CANNOT PAY FOR THE HOTEL/MOTEL. CM EDUCATED PATIENT THAT CM COULD PROVIDE HIM WITH A CAB RIDE TO A HOMELESS [place] AND VERIFIED THAT THE [facility] HAS BEDS OPEN. PT STATED JUST GET ME TWO BUS PASSES AND ILL GET OUT OF HERE AND WENT AND SLAMMED HIS DOOR TO HIS ROOM. SECURITY IS PRESENT ON THE UNIT. CM PROVIDED THEM WITH A CAB VOUCHER WELL THE ADDRESS TO [facility] AND CONTACT NUMBER.
[2019-03-14 17:07] VITALS: BP 107/61
--- NOTE | 2019-03-14 17:32 | NUR ---
ASSUMED PATIENT CARE AT 0700. A/O X4. NO CHEST PAIN. PATIENT STARTED AGITAED WHEN RN TOLD PATIENT HE IS BEEN DCCHARGED NOW. REFUSED SIGN DC ORDER. REFUSED RX. ASSEMBLY MANAGER PATIENT OUT OF UNIT AT 1700.
== END 2019-03-14 16:56 | disposition home or self-care (01) | DRG 313 ==
LOC: ER 19:51 → EROBS 21:10 → 3W 22:14
PROVIDERS: Emergency Medicine; Nurse Practitioner Family; ADMIT Hospitalist
DX: R07.9 Chest pain, unspecified (principal); I10 Essential (primary) hypertension; E78.00 Pure hypercholesterolemia, unspecified; J44.9 Chronic obstructive pulmonary disease, unspecified; G89.29 Other chronic pain; F15.10 Other stimulant abuse, uncomplicated; F41.9 Anxiety disorder, unspecified; I25.10 Atherosclerotic heart disease of native coronary artery without angina pectoris; E78.5 Hyperlipidemia, unspecified; I25.5 Ischemic cardiomyopathy; I25.2 Old myocardial infarction; I69.354 Hemiplegia and hemiparesis following cerebral infarction affecting left non-dominant side; Z95.0 Presence of cardiac pacemaker; Z88.6 Allergy status to analgesic agent; Z88.8 Allergy status to other drugs, medicaments and biological substances; Z95.5 Presence of coronary angioplasty implant and graft
CPT/HCPCS: 10879

== ENCOUNTER 2019-03-30 00:19 | Inpatient (IN) | payer OTHER ==
[~2019-03-30] VITALS: Ht 160 cm; Wt 63.8 kg
[2019-03-30 00:24] VITALS: BP 117/73
[2019-03-30 01:00] LABS: ANION GAP 18 mmol/L (7-16); BUN 12 mg/dL (7-18); CALCIUM 9.4 mg/dL (8.5-10.1); CHLORIDE 95 mmol/L (98-107); CO2 20 mmol/L (21-32); CREATININE 0.8 mg/dL (0.7-1.3); GLUCOSE 74 mg/dL (74-106); POTASSIUM 4.4 mmol/L (3.5-5.1); SODIUM 133 mmol/L (136-145)
[2019-03-30 01:00] LABS: HEMATOCRIT 32.8 % (42.0-52.0); HEMOGLOBIN 11.3 gm/dL (14.0-18.0); MCH 29.9 pg (26.0-34.0); MCHC 34.3 g/dL (28.0-37.0); MCV 87.1 fL (80.0-100.0); PLATELET COUNT 252 thou/uL (150-400); RBC 3.77 mil/uL (4.50-6.00); RDW 14.5 % (10.5-14.5); WBC 6.4 thou/uL (4.0-11.0)
[2019-03-30 01:10] LABS: ALBUMIN 3.9 g/dL (3.4-5.0); SGOT 63 U/L (15-37); SGPT 40 U/L (30-65); TOTAL PROTEIN 7.8 g/dL (6.4-8.2); TROPONIN-I <0.06 ng/mL (<0.06)
[2019-03-30 01:49] VITALS: BP 124/81
[2019-03-30 02:06] VITALS: BP 124/81
[2019-03-30 02:13] LABS: ABSOLUTE NEUTROPHILS 3.6 thou/uL (1.4-8.2)
[2019-03-30 02:40] VITALS: BP 151/91
[2019-03-30 04:43] LABS: LARGE PLATELETS OCCASIONAL
--- NOTE | 2019-03-30 07:24 | EKG ---
[place] [address] [address] [address] ELECTROCARDIOGRAM REPORT Name: KENA JACKSON Room #: 359-P ADM IN M.R.#: [id number] ������������������ Admission: 03/30/19 ������������������ Attend Phys: Nolan Jiménez Discharge: ������������������ Date of : 58 Report #: [id number] ����������������������������������������������������������������� [id number] THIS REPORT FOR: //name// [facility] ED Test Date: 2019-03-30 Test Time: 00:34:02 Pat Name: KENA JACKSON Department: Room: 359 Gender: M Hose Coupling Joiner: anselmo : 1960 Requested By: Megha Donnelly Order Number: [id number] MD: Tj Valero Measurements Intervals [place] Rate: 83 P: 58 [place]: 124 QRS: -61 QRSD: 100 T: 107 QT: 378 QTc: 445 Interpretive Statements Sinus rhythm Ventricular premature complex Inferior infarct, age indeterminate Abnormal R-wave progression, early transition Nonspecific ST and T wave abnormality Compared to ECG 03/12/2019 07:55:59 no significant change was found Electronically Signed On 03-30-2019 7:23:51 CDT by Tj Valero [email or web address] ��������������������������������������������� <ELECTRONICALLY SIGNED> ���������������������������������������� By: Tj Valero MD, [facility] ��������������������������������������������� 03/30/19 0723 0034 0034 Tj Valero MD, [facility] /EPI
--- NOTE | 2019-03-30 08:07 | EKG ---
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: SNEHA : 1960 Requested By: Sujata Mcfarland Order Number: [id number] MD: Robert Westafll Measurements Intervals [place] Rate: 95 P: 70 [place]: 131 QRS: -64 QRSD: 105 T: 74 QT: 418 QTc: 526 Interpretive Statements Sinus rhythm Ventricular bigeminy Inferoposterior infarct, old Lateral leads are also involved Compared to ECG 03/30/2019 00:34:02 ST (T wave) deviation no longer present Myocardial infarct finding still present Electronically Signed On 03-30-2019 8:07:07 CDT by Robert Westfall [email or web address] ��������������������������������������������� <ELECTRONICALLY SIGNED> ���������������������������������������� By: Robert Westfall MD ��������������������������������������������� 03/30/19 0807 0749 0749 Robert eWstfall MD /EPI
[2019-03-30 11:19] VITALS: BP 118/64
[2019-03-30 15:32] VITALS: BP 118/64
== END 2019-03-30 18:11 | disposition home or self-care (01) | DRG 313 ==
LOC: ER 00:19 → EROBS 01:28 → 3W 01:28
PROVIDERS: Student in an Organized Health Care Education/Training Program; ADMIT Hospitalist
DX: R07.89 Other chest pain (principal); I42.9 Cardiomyopathy, unspecified; I10 Essential (primary) hypertension; E78.00 Pure hypercholesterolemia, unspecified; J44.9 Chronic obstructive pulmonary disease, unspecified; G89.29 Other chronic pain; F15.10 Other stimulant abuse, uncomplicated; F17.210 Nicotine dependence, cigarettes, uncomplicated; E78.5 Hyperlipidemia, unspecified; I25.10 Atherosclerotic heart disease of native coronary artery without angina pectoris; Z95.5 Presence of coronary angioplasty implant and graft; Z71.51 Drug abuse counseling and surveillance of drug abuser; I69.354 Hemiplegia and hemiparesis following cerebral infarction affecting left non-dominant side; Z95.0 Presence of cardiac pacemaker; I25.2 Old myocardial infarction; Z88.6 Allergy status to analgesic agent; Z88.8 Allergy status to other drugs, medicaments and biological substances; Z79.82 Long term (current) use of aspirin; Z79.899 Other long term (current) drug therapy
CPT/HCPCS: 10879

== ENCOUNTER 2019-04-10 16:19 | Inpatient (IN) | payer OTHER ==
[~2019-04-10] VITALS: Ht 170.2 cm; Wt 68.0 kg
[2019-04-10 16:22] VITALS: BP 131/81
[2019-04-10 16:49] LABS: ABSOLUTE NEUTROPHILS 4.7 thou/uL (1.4-8.2); BASOPHILS 1.2 % (0.0-2.0); EOSINOPHILS 2.5 % (0.0-3.0); HEMATOCRIT 32.8 % (42.0-52.0); HEMOGLOBIN 11.3 gm/dL (14.0-18.0); LYMPHOCYTES 19.7 % (24.0-44.0); MCH 30.5 pg (26.0-34.0); MCHC 34.5 g/dL (28.0-37.0); MCV 88.4 fL (80.0-100.0); MONOCYTES 9.3 % (1.0-8.0); PLATELET COUNT 249 thou/uL (150-400); POLYS 67.3 % (36.0-66.0); RBC 3.71 mil/uL (4.50-6.00); RDW 14.6 % (10.5-14.5)
[2019-04-10 16:51] LABS: AMP/METHAMP Negative (Negative); BARBITURATES Negative (Negative); BENZODIAZEPINES Negative (Negative); COCAINE Negative (Negative); METHADONE Negative (Negative); OPIATES Negative (Negative); PCP Negative (Negative)
[2019-04-10 17:01] LABS: ANION GAP 9 mmol/L (7-16); BUN 11 mg/dL (7-18); CALCIUM 8.2 mg/dL (8.5-10.1); CHLORIDE 106 mmol/L (98-107); CO2 24 mmol/L (21-32); CREATININE 0.9 mg/dL (0.7-1.3); GLUCOSE 95 mg/dL (74-106); POTASSIUM 3.7 mmol/L (3.5-5.1); SODIUM 139 mmol/L (136-145)
[2019-04-10 17:12] LABS: ALBUMIN 3.3 g/dL (3.4-5.0); SGOT 15 U/L (15-37); SGPT 21 U/L (30-65); TOTAL BILIRUBIN 0.1 mg/dL (<0.1-1.0); TOTAL PROTEIN 6.5 g/dL (6.4-8.2); TROPONIN-I <0.06 ng/mL (<0.06)
--- NOTE | 2019-04-10 18:07 | EKG ---
[place] [address] [employer] [facility] 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: DIEGO : 1960 Requested By: Megha Donnelly Order Number: [id number] MD: Robert Westfall Measurements Intervals [place] Rate: 100 P: 66 [place]: 123 QRS: -59 QRSD: 100 T: 114 QT: 360 QTc: 465 Interpretive Statements Sinus tachycardia Paired ventricular premature complexes Left anterior fascicular block Nonspecific T abnormalities, lateral leads Compared to ECG 03/30/2019 07:49:19 Electronically Signed On 04-10-2019 18:07:38 CDT by Robert Westfall [email or web address] ��������������������������������������������� <ELECTRONICALLY SIGNED> ���������������������������������������� By: Robert Westfall MD ��������������������������������������������� 04/10/19 1807 22 22 Robert Westfall MD /LUCIA
[2019-04-10 18:33] VITALS: BP 126/80
[2019-04-10 18:46] VITALS: BP 142/79
[2019-04-10 19:11] VITALS: BP 133/70
[2019-04-11 04:33] VITALS: BP 89/56
[2019-04-11 05:18] VITALS: BP 101/69
[2019-04-11 05:35] LABS: HEMATOCRIT 38.6 % (42.0-52.0); HEMOGLOBIN 13.1 gm/dL (14.0-18.0); MCH 30.2 pg (26.0-34.0); MCHC 33.9 g/dL (28.0-37.0); MCV 89.3 fL (80.0-100.0); RBC 4.33 mil/uL (4.50-6.00); RDW 14.6 % (10.5-14.5); WBC 5.8 thou/uL (4.0-11.0)
[2019-04-11 05:57] LABS: ANION GAP 11 mmol/L (7-16); BUN 10 mg/dL (7-18); CALCIUM 8.8 mg/dL (8.5-10.1); CHLORIDE 107 mmol/L (98-107); CO2 24 mmol/L (21-32); CREATININE 0.9 mg/dL (0.7-1.3); GLUCOSE 90 mg/dL (74-106); POTASSIUM 4.4 mmol/L (3.5-5.1); SODIUM 142 mmol/L (136-145); TROPONIN-I <0.06 ng/mL (<0.06)
[2019-04-11 07:52] VITALS: BP 105/51
[2019-04-11 15:54] VITALS: BP 103/63
[2019-04-11 19:55] VITALS: BP 122/57
[2019-04-12 04:40] VITALS: BP 126/60
[2019-04-12 06:05] LABS: HEMATOCRIT 34.3 % (42.0-52.0); HEMOGLOBIN 11.7 gm/dL (14.0-18.0); MCH 30.4 pg (26.0-34.0); MCV 89.4 fL (80.0-100.0); RBC 3.84 mil/uL (4.50-6.00); RDW 14.5 % (10.5-14.5); WBC 4.7 thou/uL (4.0-11.0)
[2019-04-12 06:18] LABS: ANION GAP 9 mmol/L (7-16); BUN 12 mg/dL (7-18); CALCIUM 8.6 mg/dL (8.5-10.1); CHLORIDE 106 mmol/L (98-107); CO2 26 mmol/L (21-32); GLUCOSE 93 mg/dL (74-106); POTASSIUM 3.9 mmol/L (3.5-5.1); SODIUM 141 mmol/L (136-145); TROPONIN-I <0.06 ng/mL (<0.06)
--- NOTE | 2019-04-12 13:57 | CATHLAB ---
[facility] [address] [place] [address] INVASIVE PROCEDURE REPORT Name: KENA JACKSON Room #: 213-P ADM IN ..#: [id number] ������������� Admission: 04/10/19 ������������� Attend Phys: Angel Luis Dunbar MD Discharge: ��� ������������� ��� Date of : 58 Date of Service: 04/12/19 1356 �� Report #: [id number] �������� ��������������������������������������������[id number] THIS REPORT FOR: //name// APPROVED REPORT Study performed: 04/12/2019 12:21:53 Patient Details Patient Status: In-Patient Room #: The patient is a 58 year-old male Event Personnel Randell Dumont Sports Therapist, Rachael Dee Monitor, Loren Avila RTR, OG Norton, Natasha Gaviria RN, Guido Nunn ent consultant Performed Art Access - R femoral artery* 22361 Initial Mod Sed Same Phys/QHP Gr5y 915562 48288 Mod Sed Same Phys/QHP Ea 194488 Left Heart Cath w/or w/o Coronaries [id number] [facility] Hemostasis with Manual pressure Indication Dyspnea, Chest pain Risk Factors Hypercholesterolemia, Coronary Artery DiseaseHypertension Previous Procedures/Diagnoses Previous PCI, Previous IN Procedure Narrative The Right Groin^ was infiltrated with subcutaneous anesthesia. A PINNACLE 4FR Sheath #[id number] sheath was inserted into the RFA^. Coronary angiography was performed using coronary diagnostic catheters. The right coronary system was accessed and visualized with a JR4 catheter. The left coronary system was accessed and visualized with a JL4 catheter. The left ventricle was accessed and visualized with a ANGLE PIG catheter. Left ventricular/Aortic Valve gradient assessed . Left ventriculogram was performed in 30 degree projection. Hemostasis was obtained with manual pressure following sheath removal without any complications. The patient tolerated the procedure well and there were no complications associated with the procedure. There was no hematoma. Intraoperative Conscious Sedation [facility] [address] [place] [address] INVASIVE PROCEDURE REPORT Name: KENA JACKSON [place] Room #: 213-P [facility] IN .R.#: [id number] ������������� Admission: 04/10/19 ������������� Attend Phys: Angel Luis Dunbar MD Discharge: ��� ������������� ��� Date of : 58 Date of Service: 04/12/19 1356 �� Report #: [id number] �������� ��������������������������������������������[id number] Sedation start time: 1238 Case end Time: 1310 Fentanyl 50 mcg Versed 3 mg Fluoro Time: 3.30 minutes Dose: DAP 3813.80 cGycm2 466 mGy Contrast Type and Amount: Omnipaque 80 ml Coronary Angiography The patient's coronary anatomy is left dominant. Diagnostic Cath Left Main This is a large caliber vessel, patent with no flow-limiting lesions. LAD This is a moderate size caliber vessel, traversing the anterior wall and wrapping around the apex. There is a stent in the proximal segment, patent with mild restenosis, 20%. Diagonal 1 There is a stent in the proximal segment, patent with mild restenosis, 20% Circumflex This is a dominant vessel, supplies the left PDA. There is mild disease in the proximal segment. OM1 This vessel was previously stented, has a total occlusion at the ostium. OM2 This is a moderate size caliber vessel, patent with no flow-limiting lesions. L PDA There is a stent in the distal left circumflex artery/proximal left PDA, patent with mild restenosis, 20%. Right Coronary This is a small, nondominant vessel with a total occlusion. Left Ventriculography The left ventricle is mildly dilated in size with decreased contractility. The left ventricular ejection fraction is estimated to be 35%. Left ventricular wall motion abnormalities are present. There is hypokinesis of the inferior and anterolateral segments. Hemodynamics The aortic pressure is 98/65 mmHg with a mean of 72 mmHg. The left ventricular pressure is 115/8 mmHg with a mean of mmHg. The left ventricular end diastolic pressure is 26 mmHg. Conclusion 1. There are patent stents in the proximal LAD and proximal first diagonal artery, with mild restenosis. 2. The left circumflex artery is a dominant vessel, with patent [facility] [address] [place] [address] INVASIVE PROCEDURE REPORT Name: KENA JACKSON Room #: 213-P [facility] IN ..#: [id number] ������������� Admission: 04/10/19 ������������� Attend Phys: Angel Luis Dunbar MD Discharge: ��� ������������� ��� Date of : 58 Date of Service: 04/12/19 1356 �� Report #: [id number] �������� ��������������������������������������������[id number] stents in the distal segment, with mild restenosis. 3. 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 4. Moderately severe segmental LV dysfunction. 5. Recommend aggressive risk factor management. ��������������������������������������������� <ELECTRONICALLY SIGNED> ���������������������������������������� By: Randell Dumont MD ��������������������������������������������� 04/12/19 1356 1356 1356 Randell Dumont MD /INF
[2019-04-12 15:02] VITALS: BP 88/55
[2019-04-12 19:37] VITALS: BP 122/49
[2019-04-13 00:45] VITALS: BP 108/45
[2019-04-13 04:00] VITALS: BP 107/43
[2019-04-13 04:26] LABS: HEMOGLOBIN 12.1 gm/dL (14.0-18.0); MCH 29.8 pg (26.0-34.0); MCHC 33.6 g/dL (28.0-37.0); MCV 88.9 fL (80.0-100.0); RBC 4.06 mil/uL (4.50-6.00); RDW 14.5 % (10.5-14.5); WBC 4.7 thou/uL (4.0-11.0)
[2019-04-13 04:32] LABS: CALCIUM 8.9 mg/dL (8.5-10.1); CREATININE 0.9 mg/dL (0.7-1.3); POTASSIUM 4.3 mmol/L (3.5-5.1)
[2019-04-13 08:00] VITALS: BP 101/52
[2019-04-13] MEDS ORDERED: COREG6.25 MG PO (10:34)
[2019-04-13] MEDS ORDERED: ASPIRIN81 M2 PO (10:34)
[2019-04-13] MEDS ORDERED: LYRICA300 MG PO (10:34)
[2019-04-13] MEDS ORDERED: NITROGLYCERIN0.4 MG SUBLING (10:34)
[2019-04-13] MEDS ORDERED: SPIRIVA INH (10:34)
[2019-04-13] MEDS ORDERED: CRESTOR10 MG PO (10:34)
[2019-04-13] MEDS ORDERED: PLAVIX 75 MG TA75 M1 PO (10:34)
[2019-04-13] MEDS ORDERED: RANEXA500 MG PO (10:34)
[2019-04-13 10:38] VITALS: BP 101/52
[2019-04-13 11:04] VITALS: BP 101/52
[2019-04-13 12:11] VITALS: BP 101/52
== END 2019-04-13 12:05 | disposition home or self-care (01) | DRG 286 ==
LOC: ER 16:19 → 4W 18:48 → 2N 04-12 13:38
PROVIDERS: Internal Medicine Cardiovascular Disease; Student in an Organized Health Care Education/Training Program; ADMIT Hospitalist
PROC: 4A023N7 Measurement of Cardiac Sampling and Pressure, Left Heart, Percutaneous Approach (ICD-10-PCS; principal; 2019-04-12)
PROC: B2151ZZ Fluoroscopy of Left Heart using Low Osmolar Contrast (ICD-10-PCS; principal; 2019-04-12)
PROC: B2111ZZ Fluoroscopy of Multiple Coronary Arteries using Low Osmolar Contrast (ICD-10-PCS; principal; 2019-04-12)
DX: I25.10 Atherosclerotic heart disease of native coronary artery without angina pectoris (principal); I63.9 Cerebral infarction, unspecified; G81.94 Hemiplegia, unspecified affecting left nondominant side; I42.9 Cardiomyopathy, unspecified; I10 Essential (primary) hypertension; E78.00 Pure hypercholesterolemia, unspecified; J44.9 Chronic obstructive pulmonary disease, unspecified; G89.29 Other chronic pain; E78.5 Hyperlipidemia, unspecified; F17.210 Nicotine dependence, cigarettes, uncomplicated; F15.10 Other stimulant abuse, uncomplicated; Z71.51 Drug abuse counseling and surveillance of drug abuser; Z79.82 Long term (current) use of aspirin; I25.2 Old myocardial infarction; Z88.8 Allergy status to other drugs, medicaments and biological substances; Z95.0 Presence of cardiac pacemaker; Z88.6 Allergy status to analgesic agent; Z79.899 Other long term (current) drug therapy; Z95.5 Presence of coronary angioplasty implant and graft
CPT/HCPCS: 10045; 10081

== ENCOUNTER 2019-07-01 11:44 | Emergency (ER) | payer OTHER ==
[~2019-07-01] VITALS: Ht 170.2 cm; Wt 68.0 kg
[~2019-07-01 11:44] MED LIST changes: +COREG6.25 MG PO
[2019-07-01 12:15] LABS: HEMATOCRIT 33.6 % (42.0-52.0); HEMOGLOBIN 11.4 gm/dL (14.0-18.0); MCH 29.7 pg (26.0-34.0); MCHC 33.9 g/dL (28.0-37.0); MCV 87.4 fL (80.0-100.0); PLATELET COUNT 265 thou/uL (150-400); RBC 3.85 mil/uL (4.50-6.00); WBC 5.1 thou/uL (4.0-11.0)
[2019-07-01] MEDS ORDERED: TOPROL XL25 MG PO (12:15)
[2019-07-01 12:30] LABS: ANION GAP 9 mmol/L (7-16); BUN 7 mg/dL (7-18); CALCIUM 9.4 mg/dL (8.5-10.1); CHLORIDE 102 mmol/L (98-107); CO2 27 mmol/L (21-32); GLUCOSE 102 mg/dL (74-106); POTASSIUM 3.5 mmol/L (3.5-5.1); SODIUM 138 mmol/L (136-145)
[2019-07-01 12:35] LABS: ALBUMIN 3.6 g/dL (3.4-5.0); SGOT 47 U/L (15-37); SGPT 42 U/L (30-65); TOTAL BILIRUBIN 0.4 mg/dL (<0.1-1.0); TOTAL PROTEIN 7.5 g/dL (6.4-8.2); TROPONIN-I <0.06 ng/mL (<0.06)
[2019-07-01 12:44] LABS: ABSOLUTE NEUTROPHILS 2.7 thou/uL (1.4-8.2); PLATELET ESTIMATE NORMAL
[2019-07-01 15:42] VITALS: BP 99/72
--- NOTE | 2019-07-02 15:22 | EKG ---
[place] [address] [address] [facility] [place] [address] ELECTROCARDIOGRAM REPORT Name: KENA JACKSON Room #: DEP [facility] [id number] ������������������ Admission: 07/01/19 ������������������ Attend Phys: Discharge: 07/01/19 ������������������ Date of : 58 Report #: [id number] ����������������������������������������������������������������� [id number] THIS REPORT FOR: //name// 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: : 1960 Requested By: Megha Donnelly Order Number: [id number] MD: Tj Valero Measurements Intervals [place] Rate: 96 P: 66 [place]: 126 QRS: -55 QRSD: 99 T: 93 QT: 367 QTc: 464 Interpretive Statements Sinus tachycardia Multiple ventricular premature complexes Abnormal R-wave progression, early transition Inferior infarct, old Compared to ECG 04/10/2019 16:23:08 no significant change was found Electronically Signed On 07-02-2019 15:22:17 CDT by Tj Valero [email or web address] ��������������������������������������������� <ELECTRONICALLY SIGNED> ���������������������������������������� By: Tj Valero MD, [facility] ��������������������������������������������� 07/02/19 1522 1146 1146 Tj Valero MD, [facility] /EPI
== END 2019-07-01 15:43 | disposition home or self-care (01) ==
LOC: ER 11:44
PROVIDERS: Student in an Organized Health Care Education/Training Program
DX: R07.89 Other chest pain (principal); I25.2 Old myocardial infarction; E78.00 Pure hypercholesterolemia, unspecified; J44.9 Chronic obstructive pulmonary disease, unspecified; G89.29 Other chronic pain; F17.210 Nicotine dependence, cigarettes, uncomplicated; Z88.6 Allergy status to analgesic agent; Z88.8 Allergy status to other drugs, medicaments and biological substances; Z79.899 Other long term (current) drug therapy; Z79.82 Long term (current) use of aspirin; Z95.0 Presence of cardiac pacemaker; Z86.73 Personal history of transient ischemic attack (TIA), and cerebral infarction without residual deficits

== ENCOUNTER 2019-08-25 16:35 | Emergency (ER) | payer OTHER ==
[~2019-08-25] VITALS: Ht 170.2 cm; Wt 68.0 kg
[2019-08-25 17:34] LABS: HEMATOCRIT 31.4 % (42.0-52.0); HEMOGLOBIN 10.3 gm/dL (14.0-18.0); MCH 27.8 pg (26.0-34.0); MCHC 32.8 g/dL (28.0-37.0); MCV 84.9 fL (80.0-100.0); PLATELET COUNT 283 thou/uL (150-400); RDW 15.2 % (10.5-14.5); WBC 4.9 thou/uL (4.0-11.0)
[2019-08-25 17:41] LABS: ANION GAP 8 mmol/L (7-16); BUN 10 mg/dL (7-18); CALCIUM 8.7 mg/dL (8.5-10.1); CHLORIDE 103 mmol/L (98-107); CO2 26 mmol/L (21-32); GLUCOSE 92 mg/dL (74-106); POTASSIUM 4.3 mmol/L (3.5-5.1); SODIUM 137 mmol/L (136-145)
[2019-08-25 17:52] LABS: ALBUMIN 3.6 g/dL (3.4-5.0); MAGNESIUM 2.1 mg/dL (1.8-2.4); SGOT 13 U/L (15-37); SGPT 14 U/L (30-65); TOTAL BILIRUBIN 0.2 mg/dL (<0.1-1.0); TOTAL PROTEIN 7.3 g/dL (6.4-8.2); TROPONIN-I <0.06 ng/mL (<0.06)
[2019-08-25 18:15] LABS: ABSOLUTE NEUTROPHILS 2.3 thou/uL (1.4-8.2); PLATELET ESTIMATE NORMAL
[2019-08-25 19:40] VITALS: BP 114/71
--- NOTE | 2019-08-26 11:32 | EKG ---
[address] [address] ELECTROCARDIOGRAM REPORT Name: KENA JACKSON [facility] [id number] Admission: 08/25/19 Attend Phys: Discharge: 08/25/19 Date of : 58 Report #: [id number] THIS REPORT FOR: //name// [facility] ED Test Date: 2019-08-25 Test Time: 16:54:36 Pat Name: KENA JACKSON Department: Room: Gender: M Order Planner: : 1960 Requested By: Dallas Barnes Order Number: [id number] MD: Robert Westfall Measurements Intervals [place] Rate: 83 P: 51 [place]: 138 QRS: -41 QRSD: 95 T: 111 QT: 382 QTc: 449 Interpretive Statements Sinus rhythm Ventricular bigeminy Probable left atrial enlargement Left axis deviation Posterior infarct, old Nonspecific T abnormalities, lateral leads Compared to ECG 07/01/2019 11:46:02 Left-axis deviation now present T-wave abnormality now present Sinus tachycardia no longer present Myocardial infarct finding still present Electronically Signed On 08-26-2019 11:31:57 CDT by Robert Westfall [email or web address] <ELECTRONICALLY SIGNED> By: Robert Westfall MD 08/26/19 1131 1654 1654 Robert Westfall MD /EPI
== END 2019-08-25 19:40 | disposition home or self-care (01) ==
LOC: ER 16:35
PROVIDERS: Emergency Medicine
DX: R07.89 Other chest pain (principal); F17.210 Nicotine dependence, cigarettes, uncomplicated; I10 Essential (primary) hypertension; E78.00 Pure hypercholesterolemia, unspecified; J44.9 Chronic obstructive pulmonary disease, unspecified; G89.29 Other chronic pain; Z88.6 Allergy status to analgesic agent; Z88.8 Allergy status to other drugs, medicaments and biological substances; Z95.0 Presence of cardiac pacemaker; Z86.73 Personal history of transient ischemic attack (TIA), and cerebral infarction without residual deficits

== ENCOUNTER 2019-10-28 20:59 | Inpatient (IN) | payer OTHER ==
[~2019-10-28] VITALS: Ht 170.2 cm; Wt 66.7 kg
[2019-10-28 21:02] VITALS: BP 134/80
[2019-10-28 21:16] LABS: HEMATOCRIT 29.3 % (42.0-52.0); HEMOGLOBIN 9.6 gm/dL (14.0-18.0); MCH 25.6 pg (26.0-34.0); MCHC 32.6 g/dL (28.0-37.0); MCV 78.6 fL (80.0-100.0); PLATELET COUNT 285 thou/uL (150-400); RBC 3.73 mil/uL (4.50-6.00); RDW 16.8 % (10.5-14.5); WBC 7.6 thou/uL (4.0-11.0)
[2019-10-28 21:33] LABS: CALCIUM 9.4 mg/dL (8.5-10.1); POTASSIUM 3.4 mmol/L (3.5-5.1); TROPONIN-I 0.1 ng/mL (<0.06)
[2019-10-28 21:47] LABS: ABSOLUTE NEUTROPHILS 5.9 thou/uL (1.4-8.2); ANISOCYTOSIS 1+
--- NOTE | 2019-10-28 22:31 | NUR ---
STEVE LOOKED THROUGH PATIENT BELONGINGS AND CLOTHES FOR ANY DRUGS OR OTHER HARMFUL SUBSTANCES. NONE FOUND.
--- NOTE | 2019-10-28 22:37 | NUR ---
REPORT CALLED TO KEVIN SAHU ON 3W. PT RESTING IN BED AT THIS TIME.
[2019-10-28 22:46] VITALS: BP 109/73
[2019-10-28 22:57] VITALS: BP 112/73
[2019-10-29 01:25] LABS: HEMATOCRIT 27.9 % (42.0-52.0); HEMOGLOBIN 9.1 gm/dL (14.0-18.0); MCH 25.7 pg (26.0-34.0); MCHC 32.6 g/dL (28.0-37.0); MCV 78.8 fL (80.0-100.0); RBC 3.55 mil/uL (4.50-6.00); RDW 16.6 % (10.5-14.5); WBC 5.6 thou/uL (4.0-11.0)
[2019-10-29 01:45] LABS: % SATURATION 4 % (20-39); IRON 13 ug/dL (65-175); TIBC 333 ug/dL (250-450)
--- NOTE | 2019-10-29 02:16 | NUR ---
ASSESSMENT: PT REMAIN ALERT AND ORIENT TIMES 2. PERSON/PLACE. DOES NOT RESPOND TO OTHER QUESTIONS. PT IS VERY SLEEPY AND EASY TO AROUSE MOST TIMES BUT SOON FALLS BACK TO SLEEP. HISTORY/ASSESMENT COMPLETED MUCH POSSIBLE AT THIS TIME. PT DOES NOT SEEM TO HAVE ANY VISIBLE WOUNDS. PT GETS AGITATED WHEN ASKED TO ALLOW THIS RN TO ASSESS HIS BACK AND FEET, VSS, ST WITH TRIGEMINY PER MONITOR. TROP = 0.10. DR. SHEPARD WAS NOTIFIED PER JOSEPHINE PICKARD'S REQUEST FOR POSSIBLE ORDER FOR HEPARIN OR LOVENOX. NO ORDERS GIVEN PER DR. SHEPARD. CURRENTLY PT IS NPO, SLEEPING AND QUIET. WILL CONTINUE TO MONITOR.
[2019-10-29 02:19] LABS: ALBUMIN 3.2 g/dL (3.4-5.0); ANION GAP 12 mmol/L (7-16); BUN 4 mg/dL (7-18); CALCIUM 8.5 mg/dL (8.5-10.1); CHLORIDE 103 mmol/L (98-107); CHOLESTEROL 130 mg/dL (<200); CO2 22 mmol/L (21-32); CREATININE 0.8 mg/dL (0.7-1.3); GLUCOSE 85 mg/dL (74-106); HDL CHOLESTEROL 36 mg/dL (>40); LDL CHOLESTEROL 85 mg/dL (<100); POTASSIUM 3.1 mmol/L (3.5-5.1); SGOT 15 U/L (15-37); SGPT 15 U/L (30-65); SODIUM 137 mmol/L (136-145); TC:HDL 3.6 Ratio (Not establshd); TOTAL BILIRUBIN 0.5 mg/dL (<0.1-1.0); TOTAL PROTEIN 6.8 g/dL (6.4-8.2); TRIGLYCERIDE 45 mg/dL (<150); VLDL 9 mg/dL (<40)
[2019-10-29 02:24] LABS: SERUM ASSESSMENT Clear
[2019-10-29 05:05] VITALS: BP 108/67
[2019-10-29 07:22] VITALS: BP 106/70
[2019-10-29 11:16] VITALS: BP 112/82
--- NOTE | 2019-10-29 12:54 | EKG ---
[address] [employer] [place] [address] ELECTROCARDIOGRAM REPORT Name: KENA JACKSON Room #: 351-P ADM IN M.R.#: [id number] Admission: 10/28/19 Attend Phys: Nolan Jiménez Discharge: Date of : 58 Report #: [id number] THIS REPORT FOR: //name// [facility] ED Test Date: 2019-10-28 Test Time: 21:01:37 Pat Name: KENA JACKSON Department: Room: [facility] Gender: M Book Trimmer: ARLEN : 1960 Requested By: Eliel Kat Order Number: [id number] MD: Tj Valero Measurements Intervals [place] Rate: 110 P: 55 [place]: 138 QRS: -34 QRSD: 101 T: 110 QT: 335 QTc: 454 Interpretive Statements Sinus tachycardia Frequent premature ventricular complexes Left axis deviation Cannot rule out inferior infarct, age indeterminate Abnormal R-wave progression, early transition Nonspecific ST and T wave abnormality Compared to ECG 08/25/2019 16:54:36 No significant change was found Electronically Signed On 10-29-2019 12:53:42 FIRST LEVELER by Tj Valero [email or web address] <ELECTRONICALLY SIGNED> By: Tj Valero MD, FAC 10/29/19 1253 00 00 Tj Valero MD, [facility] /EPI
--- NOTE | 2019-10-29 12:55 | EKG ---
[place] [address] [facility] [place] [address] ELECTROCARDIOGRAM REPORT Name: KENA JACKSON Room #: 351-P ADM IN M.R.#: [id number] Admission: 10/28/19 Attend Phys: Nolan Jiménez Discharge: Date of : 58 Report #: [id number] THIS REPORT FOR: //name// [facility] ED Test Date: 2019-10-28 Test Time: 21:47:01 Pat Name: KENA JACKSON Department: Room: [facility] Gender: M Financial Auditor: ELIZABETH : 1960 Requested By: Eliel Kat Order Number: [id number] MD: Tj Valero Measurements Intervals [place] Rate: 106 P: 45 PA: 140 QRS: -48 QRSD: 109 T: 95 QT: 348 QTc: 463 Interpretive Statements Sinus tachycardia Frequent premature ventricular complexes Leftward axis RSR' in V1 or V2, right VCD Nonspecific ST and T wave abnormality Cannot rule out inferior infarct, age indeterminate Compared to ECG 08/25/2019 16:54:36 No significant change was found Electronically Signed On 10-29-2019 12:54:40 SEAMING MACHINE OPERATOR by Tj Valero [email or web address] <ELECTRONICALLY SIGNED> By: Tj Valero MD, FAC 10/29/19 1254 2147 2147 Tj Valero MD, FAC /EPI
[2019-10-29 15:15] VITALS: BP 116/94
--- NOTE | 2019-10-29 17:07 | NUR ---
PT ALERT AND ORIENTED TIMES FOUR. PT VERY AGITATED THIS MORNING. VSS, 100%RA, SR ON TELE. PT DENIES PAIN/SOA BUT C/O BEING "CRANKY" SCHEDULED MEDS GIVEN. PT TOLERATES MEDS AND MEALS. PT UP WITH STANDBY ASSIST. PT PROGRESSING TOWRADS POC GOALS.
[2019-10-29 20:08] VITALS: BP 106/61
[2019-10-30 05:26] VITALS: BP 107/69
--- NOTE | 2019-10-30 05:44 | NUR ---
ASSUMED CARE OF PATIENT AT 1900. VSS, AFEBRILE. UP PACING THE HALLS UNTIL 2099. XANAX GIVEN, PATIENT ABLE TO SLEEP. WOKEN FOR VITALS AND MEDICATION. VERY IRRITABLE AND UNCOOPERATIVE. NO S/S OF DISTRESS.
[2019-10-30 07:39] VITALS: BP 92/58
[2019-10-30] MEDS ORDERED: CHLORDIAZEPOXID10 MG PO (09:43)
--- NOTE | 2019-10-30 12:22 | NUR ---
assessment: CM REVIEWED CHART AND MET WITH PATIENT AT THE BEDSIDE. PT WAS SHOWING PATIENT PAY HOWEVER PATIENT TOLD BEDSIDE RN HE HAD INSURANCE AND HE WANTS PLACEMENT. PT WAS ADMITTED FOR NSTEMI/METH ABUSE. PT REPORTS HE IS CURRENTLY HOMELESS. PT HAS BEEN TO [facility] MULT[facility]LE TIMES AND LAST TIME WAS DISCHARGED TO A HOMELESS SENIOR LIVING IN [place]. PT STATES HE IS NOT GOING BACK TO A HOMELESS SENIOR LIVING AND WAS ON THE STREET PRIOR TO ADMISSION. PT IS STATING THAT HIS MEDICAID IS PENDING AND HIS KURTIS HAS BEEN SUBMITTED. CM CONTACTED [employer] FOR THEM TO VERIFY AND THEY STATE PER THE STATE WEBSITE PATIENTS KURTIS IS PENDING. CM DISCUSSED THAT CM CAN ATTEMPT TO FIND HIM A FACILITY THAT ACCEPTS MEDICAID PENDING AND HE IS AGREEABLE TO ANY FACILITY AT ANY LOCATION HE STATES. HE STATES HE CANNOT GO BACK TO THE STREET OR HE WILL KILL HIMSELF. CM REPORTED THIS TO THE ATTENDING AND ASKED IF PATIENT NEEDED A PSYCH CONSULT AND HE STATED NO AND HE SPOKE WITH PATIENT. CM REACHED OUT TO [facility] WHO STATES THEY CANNOT ACCEPT PATIENT UNLESS HE WAS ON DISABILITY PRIOR. CM REACHED OUT TO [facility] WHO STATES THEY CAN ACCEPT MEDICAID PENDING PATIENTS ON A CASE BY CASE SCENARIO AND THEY WOULD LOOK AT IT. CM FAXED REFERRAL TO JON NETTLES AT [facility] FAX:[phone]. CM ALSO PLACED A CALL TO [facility] TO SEE IF THEY ARE ACCEPTING MEDICAID PENDING PTS AND LEFT VM. CM ALSO ATTEMPTED TO CONTACT [facility] / [facility], [facility], [facility] AND LEFT VM. [facility] STATES THEY ACCEPT ON CASE BY CASE, CM FAXED REFERRAL AND WAITING TO HEAR BACK.
[2019-10-30 16:14] VITALS: BP 103/62
[2019-10-30 19:27] VITALS: BP 97/50
[2019-10-31 02:55] VITALS: BP 115/82
[2019-10-31 08:30] VITALS: BP 106/51
--- NOTE | 2019-10-31 13:38 | NUR ---
Mr Winkler is a 58 year old man who presented in the ER on 10/28 for meth abuse and NSTEMI. When he presented in the ER he complained of chest pain, labs showed high troponin level. Last troponin was 0.09. Upon entering his room for initial assessment he stated he wanted to be left alone. Around 0830 entered room with preceptor and did vital signs, which were normal. While completing first assessment he said he had been on a "meth binge" for several days via injection. Pt stated he desired to go to a rehab treatment center, stated he needed help. Pt is up ad kemar and moves well, orientated x4, lungs were clear, cough at good effort. Pt slightly agitated, but is complient, however he refused a full assessment. Did get lungs and heart sounds, checked radial pulses but did not get lower etremeties pulses.
--- NOTE | 2019-10-31 14:29 | NUR ---
on-going assessment: CM REVIEWED CHART AND MET WITH PATIENT AT THE BEDSIDE. CM DISCUSSED WITH PATIENT THAT CM HAS ATTEMPTED TO GET PATIENT INTO MULTIPLE FACILITES WITHOUT ANY ACCEPTANCE AT THIS TIME. ALL [facility] LOCATIONS HAVE DECLINED, [facility] DECLINED, [facility] DECLINED THEY ARE AT CAPACITY, AND STILL AWAITING A DECISION FROM [facility] CONTINUES TO REVIEW AND HAS CONCERNS. CM MET WITH PATIENT AT THE BEDSIDE AND HE IS STATING HE IS STILL HAVING THOUGHTS OF SI AND HARMING SELF IF HE IS DISCHARGED TO THE STREET OR HOMELESS DETENTION. PT REPORTS FEELING SAFE IN THE HOSPITAL BUT IF NOT HERE OR SOMEWHERE SAFE THEN HE WILL TAKE A GREAT AMOUNT OF METH. PT HAS A CATTLE BROKER THROUGH [facility] NAMED SHAHLA THAT CAME TO VISIT HIM TODAY. HER CONTACT IS [phone]. SHAHLA INFORMED CM OF THE TIMEFRAME OF EVENTS THAT HAPPENED SINCE PT WAS LAST DISCHARGED FROM HERE TO A HOMELESS DETENTION IN [place], [place]. SHE REPORTS FROM THERE PATIENT WENT TO THE [facility] WHERE HE USED TO LIVE (DAUGHTER APPARENTLY STILL LIVES DOWN THERE. FROM THERE SHE STates HE WAS GOING TO COME TO TO FINISH APPLYING FOR MEDICAID AND CAME BACK A FEW DAYS EARLY AND USED METH AND ENDED UP AT [facility]. PT THEN WENT TO [facility] FOR SOBER LIVING BUT CHECKED HIMSELF OUT EARLY LAST WEEK AND NOW PATIENT IS HERE. CM REACHED OUT TO RUSSEL AT [employer] FOR ASSISTANCE IN HELPING FIND PLACEMENT FOR PATIENT. SHE WAS VERY FAMILIAR WITH PATIENT AND REPORTS HAS WORKED WITH HIM MULTIPLE TIMES AND PROVIDED RESOURCES. [facility] HAD A BED OPEN BUT AFTER CALLING [phone] THEY WILL NOT ACCEPT MEDICAID PENDING PATIENTS, THE MEDICAID HAS TO BE ACTIVE. PT STATING HE FEELS HE NEEDS INPATIENT PSYCH AND NEEDS HOPE AGAIN. PT REPORTS HE HAS NOTHING TO BE HOPEFUL FOR RIGHT NOW AND CANNOT EVEN SEE HIS GRANDCHILDREN IN THIS STATE. PT IS HOPEFUL HE CAN GO TO INPATIENT PSYCH FOR HIS DEPRESSION/SI/HOPELESSNESS AND REPORTS THAT HE HEARD THAT [facility] MAY HAVE A NONINSURED BED OPEN AT SOME POINT NEXT WEEK. PSYCH CONSULT HAS BEEN PLACED AND PT WILL LIKELY BE SEEN THIS EVENING. CM WILL AWAIT RECOMMENDATIONS FROM PSYCHIATRY. CM WILL CONTINUE TO FOLLOW TO ASSIST NEEDED.
[2019-10-31 16:42] VITALS: BP 111/88
--- NOTE | 2019-10-31 19:05 | NUR ---
PT UP AD ANSON, GOT OWN COFFEE NUMEROUS TIMES TODAY. REQUESTING ICE CREAM, PUDDING, CRACKERS, PEANUT BUTTER AND SPRITE NUMEROUS TIMES TODAY. PT CAN BE VERBALLY AGGRESSIVE WITH RESPONSES AT TIMES BUT SAYS THANK YOU AND ASKS POLIETLY FOR THINGS. REFUSES MEDICATIONS. C/O SINUS PRESSURE THIS EVENING TRAMADOL GIVEN PER ORDER. PT IS HOMELESS AND WANTING TO GO TO FACILITY, FIRST IT WAS [facility] SO HE COULD RECEIVE HIS MEDS AND HAVE SOMEONE TAKE CARE OF HIM SO HE WOULDN'T DO DRUGS, THEN HE WANTED TO GO TO DRUG REHAB, CURRENTLY WANTING TO GO TO A PSYCH FACILITY. HE IS COMPLETELY COMFORTABLE WITH STAYING HERE LONG NEEDED. HE STATES HE DOES NOT WANT TO GO BACK TO LIVING ON THE STREETS, STATES HE CAN'T CONTINUE ON LIKE THAT AND THAT IF HE HAS TO GO BACK TO THE STREETS HE WOULD KILL HIMSELF. HE IS NOT SUICIDAL HERE AND HAS NO INTENTIONS OF COMMITING SUICIDE IF HE CONTINUES TO HAVE A PLACE TO STAY.
[2019-10-31 19:28] VITALS: BP 101/60
--- NOTE | 2019-11-01 01:23 | NUR ---
PT AWAKENED AND REQUESTED LIBRIUM, PT EXPLAINED TAPER NOW Q 8. PT DEMANDED HIS PRN XANAX. PROVIDED PER ORDER. PT STATED HE HAS DIFFICULTY SLEEPING, USUALLY AWAKENS AT 24OO AND LIBRIUM HELPS. PT PROVIDED LIBRIUM PER HIS REQUEST WITHIN ORDER PARMATERS. PT ALSO ASKED FOR ICE CREAM X 2.
--- NOTE | 2019-11-01 01:25 | NUR ---
PT AMBULATING IN [place] UPON ARRIVAL TO SHIFT. PT PLEASANT AND COOPERATIVE WITH ASSESSMENT. PT REQUESTED ICE CREAM X 2. PT VERBALIZED HIS GOAL WAS TO SLEEP, SINCE HE IS HAVING TO STAY ANOTHER NIGHT. GAIT STEADY, GOOD EYE CONTACT, BLUNTED AFFECT.
[2019-11-01 04:41] VITALS: BP 106/56
[2019-11-01 07:47] VITALS: BP 109/74
--- NOTE | 2019-11-01 08:08 | NUR ---
ON-GOING ASSESSMENT: CM REVIEWED CHART AND PSYCHIATRY CONSULT. PT WOULD BENEFIT FROM TREATMENT OF HIS MOOD AND SUBSTANCE ABUSE DISORDER. CM REACHED OUT TO [facility] INPATIENT [facility]YCH TO SEE IF THEY HAD A BED OPEN AND CURRENTLY THEY ARE AT CAPACITY. CM FAXED REFFERRAL [facility]. CM ALSO FAXED REFERRAL TO [facility] [phone] WELL SIGNATURE [phone] AND AWAITING INPUT.
[2019-11-01] MEDS ORDERED: LEXAPRO 10 MG T10 MG PO (09:31)
--- NOTE | 2019-11-01 10:16 | NUR ---
PT REFUSED METOPROLOL PO AND PROTONIX PO. DR JOSE GOLDMAN.
[2019-11-01 15:06] VITALS: BP 122/75
[2019-11-01 20:05] VITALS: BP 116/77
--- NOTE | 2019-11-02 03:09 | NUR ---
ASSUMED PATIENT CARE AT 1845. VITAL SIGNS STABLE WITH PATIENT HAVING NO COMPLAINTS OF PAIN OR NAUSEA. FULLY ORIENTED, PATIENT IS HIGHLY ANXIOUS AND CONFRONTATIONAL. FREQUENT OBSERVATION PER ORDER. PATIENT IS UP AD ANSON AND APPEARS STRONG AND BALANCED WHEN WALKING. PROBABLE DISCHARGE TODAY.
[2019-11-02 04:00] VITALS: BP 96/55
[2019-11-02 07:38] VITALS: BP 99/58
--- NOTE | 2019-11-02 08:17 | NUR ---
ON-GOING ASSESSMENT: CM REVIEWED CHART. CM CONTACTED [facility] THIS AM WHO STATES THEY ARE CURRENTLY AT CAPACITY. CM REACHED OUT TO JOSE AND LEFT WITH BED PAGER. CM REACHED OUT TO [facility] WHO STATES THEY DO NOT FEEL THEY CAN ACCEPT PATIENT BASED ON THE ACUITY ON THEIR UNIT BUT WE CAN FAX CLINICAL FOR THEM TO REVIEW. CM FAXED CLINICAL. CM CONTACTED [facility] IN [place] BUT THEY STATE THEY CAN ONLY ACCEPT PATIENTS 60 YEARS OLD AND UP. CM LEFT VM WITH [facility]. CM REACHED OUT TO [facility] WHO STATES THEY ARE CURRENTLY FULL BUT TO FAX CLINICAL FOR THEM TO REVIEW IF THEY GET A DISCHARGE. CM SENT CLINICAL. CM WILL CONTINUE TO TRY AND FIND PLACEMENT FOR PATIENT.
--- NOTE | 2019-11-02 11:56 | NUR ---
I was asked to assess the patient to see if he would meet criteria for inpatient psych. The patient is alert and oriented. He inquired as to what goes on "upstairs". I informed him that he would be in groups and receive therapy from the doctor and social media executive. The patient stated that he "don't want to live anymore. Somebody needs to find me a place to go." I explained that the hospital social workers are reaching out to find him placement. He denies having a plan. Although he stated if he was discharged he would not "live for 24 hours." I aksed him to explain. He stated that he would find drugs. He has been attened [facility] in the past for treatment. The patient stated that he would not particpate in groups, or give up his cell phone. The patient stated that his defibulator is coded to his cell phone. "When my defibulator goes off then 911 is called." I explained he is in the hospital and if something happened there is a team of professionals to help him. since he is unable to have his cell phone he stated "I'm not going." The patient asked if there are TV's in the rooms. I explained that there are no TV's in the patient rooms, but in the Day Room there is a TV. He stated "What am I supposed to lay around like a Zombie. I'm not going." I thanked him for his time.
--- NOTE | 2019-11-02 14:15 | NUR ---
on-going assessment: cm reviewed chart AND MET WITH PATIENT AT THE BEDSIDE. PT REPORTS THAT [facility] HAS A BED FOR HIM T[address]ORROW [address]. CM ATTEMPTED TO CONTACT [facility] TO VERYIFY THIS AND THEY STATED PATIENT HAD TO CALL. CM WENT INTO PTS ROOM AND HE CONTACTED [facility] AT [phone] AND CONFIRMED THEY HAVE A BED FOR HIM TOMORROW AND HE HAS TO BE THERE FOR AN APPT AT 10AM. PT REPORTS HIS OTR OWNER OPERATOR TRUCK DRIVER SHAHLA IS SUPPOSED TO TAKE HIM. CM LEFT VM FOR SHAHLA TO CONTACT CM BACK. PT WILL NEED A 30 DAY SUPPLY OF MEDS TO TAKE WITH HIM TO HIS REHAB PROGRAM. CM NOTIFIED ATTENDING AND WILL ATTEMPT TO GET THESE FILLED EARLY IN THE AM TOMORROW. CM WILL CONTINUE TO FOLLOW.
[2019-11-02 15:21] VITALS: BP 119/51
--- NOTE | 2019-11-02 16:53 | NUR ---
on-going assessment: pt has a bed at [address] [facility] tomorrow and needs to be there at 10am. pt needs his medications filled and with him at time of admission. cm notified beside rn and attending. attending wrote scripts and cm faxed down to outpatient pharmacy at [facility] for them to fill medications tonight in prepartion for him to leave tomorrow am. CM APPROVED CM VOUCHERING MEDICATIONS THROUGH CM DIRECTOR. OUTPATIENT PHARMACY WAS GIVEN BEDSIDE RN NUMBER TO CALL WHEN THEY ARE READY TONIGHT. TOMORROW AM PT WILL NEED TRANSPORTATION TO HIS INPATIENT REHAB SET UP BEFORE HE NEEDS TO BE THERE AT 10AM.
--- NOTE | 2019-11-02 16:58 | NUR ---
SOLOMON arranged w/c van transportation via [employer] at cab rate for pt to go to [facility] ([address], [facility] [address]). Transportation scheduled for [phone] tomorrow morning. Pt's meds to be filled at [facility] this evening. SOLOMON updated pt's nurse. SOLOMON is available to assist as needed.
[2019-11-02 20:04] VITALS: BP 137/53
[2019-11-03 05:08] VITALS: BP 112/56
--- NOTE | 2019-11-03 05:48 | NUR ---
ASSUMED PATIENT CARE AT 1845. VITAL SIGNS STABLE WITH PATIENT HAVING NO COMPLAINTS OF PAIN OR NAUSEA. FULLY ORIENTED, PATIENT IS ABLE TO CALL FOR NEEDS. PATIENTS MOOD AND BEHAVIOR IS VERY LABILE BASED ON WHETHER HE GETS HIS WAY. ANXIETY NOTED. UP THROUGHOUT SHIFT AD ANSON INCIDENT FREE, PATIENT IS STRONG AND BALANCED WHEN WALKING. PATIENT IS ANXIOUSLY AWAITING DISCHARGE TODAY. CONTINUE PLAN OF CARE.
[2019-11-03 07:26] VITALS: BP 115/53
[2019-11-03] MEDS ORDERED: ALPRAZOLAM 0.50.5 M1 PO (08:18)
[2019-11-03] MEDS ORDERED: ASPIR 8181 MG PO (08:18)
[2019-11-03] MEDS ORDERED: ESCITALOPRAM OX10 MG PO (08:18)
[2019-11-03] MEDS ORDERED: CLOPIDOGREL75 MG PO (08:18)
[2019-11-03] MEDS ORDERED: ATORVASTATIN CA10 MG PO (08:18)
[2019-11-03] MEDS ORDERED: METOPROLOL SUCC25 M1 PO (08:18)
[2019-11-03] MEDS ORDERED: SPIRIVA INH (08:18)
[2019-11-03] MEDS ORDERED: PANTOPRAZOLE SO40 M1 PO (08:18)
[2019-11-03 08:56] VITALS: BP 115/53
--- NOTE | 2019-11-03 09:25 | NUR ---
PT PRESCRIPTIONS TAKEN TO DR MASSEY TO BE SIGNED AND TAKEN TO THE OUTPATIENT PHARMACY TO BE FILLED. PT TRANSPORTATION HERE, SENT PT TO PHARMACY WITH FINAL ASSEMBLY AND PACKING SUPERVISOR AND TRANSPORT TO MARKETING PROJECT MANAGER PRESCRIPTIONS AND GO TO REHAB. PT WAS AMBULATORY, IV WAS DC'D EARLY THIS MORNING. PT WAS DRESSED IN OWN CLOTHES AND ALL BELONGINGS SENT WITH PT.
== END 2019-11-03 09:01 | DRG 281 ==
LOC: ER 20:59 → 3W 21:53 → EROBS 21:53 → 3W 22:46
PROVIDERS: Emergency Medicine; Nurse Practitioner; ADMIT Hospitalist
DX: I21.A1 Myocardial infarction type 2 (principal); I42.9 Cardiomyopathy, unspecified; R45.851 Suicidal ideations; I69.354 Hemiplegia and hemiparesis following cerebral infarction affecting left non-dominant side; I21.4 Non-ST elevation (NSTEMI) myocardial infarction; I10 Essential (primary) hypertension; E78.5 Hyperlipidemia, unspecified; E78.00 Pure hypercholesterolemia, unspecified; J44.9 Chronic obstructive pulmonary disease, unspecified; G89.29 Other chronic pain; F15.10 Other stimulant abuse, uncomplicated; F17.210 Nicotine dependence, cigarettes, uncomplicated; E87.6 Hypokalemia; F39 Unspecified mood [affective] disorder; F43.10 Post-traumatic stress disorder, unspecified; F32.9 Major depressive disorder, single episode, unspecified; I25.10 Atherosclerotic heart disease of native coronary artery without angina pectoris; I25.2 Old myocardial infarction; Z95.5 Presence of coronary angioplasty implant and graft; Z79.899 Other long term (current) drug therapy; Z79.82 Long term (current) use of aspirin; Z88.8 Allergy status to other drugs, medicaments and biological substances; Z79.02 Long term (current) use of antithrombotics/antiplatelets; Z95.810 Presence of automatic (implantable) cardiac defibrillator; Z91.19 Patient's noncompliance with other medical treatment and regimen; Z71.6 Tobacco abuse counseling; Z59.0 Homelessness
CPT/HCPCS: 10779; 10879

== ENCOUNTER 2020-01-29 23:17 | Emergency (ER) | payer OTHER ==
[~2020-01-29] VITALS: Ht 170.2 cm; Wt 68.0 kg
[~2020-01-29 23:17] MED LIST changes: +ALPRAZOLAM 0.50.5 M1 PO; +ASPIR 8181 MG PO; +ATORVASTATIN CA10 MG PO; +CHLORDIAZEPOXID10 MG PO; +CLOPIDOGREL75 MG PO; +ESCITALOPRAM OX10 MG PO; +LEXAPRO 10 MG T10 MG PO; +METOPROLOL SUCC25 M1 PO; +PANTOPRAZOLE SO40 M1 PO
[2020-01-29] MEDS ORDERED: CRESTOR40 MG PO (23:27)
[2020-01-29 23:58] LABS: HEMATOCRIT 30.5 % (42.0-52.0); HEMOGLOBIN 9.8 gm/dL (14.0-18.0); MCHC 32.1 g/dL (28.0-37.0); MCV 77.7 fL (80.0-100.0); PLATELET COUNT 344 thou/uL (150-400); RBC 3.93 mil/uL (4.50-6.00); RDW 18.8 % (10.5-14.5); WBC 6.4 thou/uL (4.0-11.0)
[2020-01-30 00:12] LABS: ANION GAP 13 mmol/L (7-16); BUN 13 mg/dL (7-18); CALCIUM 9.2 mg/dL (8.5-10.1); CHLORIDE 98 mmol/L (98-107); CO2 24 mmol/L (21-32); CREATININE 1.1 mg/dL (0.7-1.3); GLUCOSE 86 mg/dL (74-106); POTASSIUM 3.6 mmol/L (3.5-5.1); SODIUM 135 mmol/L (136-145)
[2020-01-30 00:21] LABS: TROPONIN-I <0.06 ng/mL (<0.06)
[2020-01-30 00:36] LABS: ABSOLUTE NEUTROPHILS 3.8 thou/uL (1.4-8.2); ANISOCYTOSIS 2+; HYPOCHROMASIA 1+; LARGE PLATELETS FEW; MICROCYTES 1+; PLATELET ESTIMATE NORMAL
[2020-01-30 00:37] LABS: POIKILOCYTOSIS 2+
[2020-01-30 02:45] VITALS: BP 118/70
--- NOTE | 2020-01-30 08:24 | EKG ---
[facility] [address] [place] [address] ELECTROCARDIOGRAM REPORT Name: KENA JACKSON Room #: DEP 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: : 1960 Requested By: Yoanna Sweeney Order Number: [id number] MD: Tj Valero Measurements Intervals [place] Rate: 99 P: 59 MD: 138 QRS: -24 QRSD: 100 T: 99 QT: 341 QTc: 438 Interpretive Statements Sinus tachycardia Multiform ventricular premature complexes Borderline left axis deviation Nonspecific T abnormalities, lateral leads Compared to ECG 10/28/2019 21:47:01 No significant change was found Electronically Signed On 01-30-2020 8:23:48 EBAY RESELLER by Tj Valero [email or web address] <ELECTRONICALLY SIGNED> By: Tj Valero MD, [facility] 01/30/20 0823 2319 2319 Tj Valero MD, [facility] /EPI
== END 2020-01-30 04:56 | disposition home or self-care (01) ==
LOC: ER 23:17
PROVIDERS: Emergency Medicine
DX: R07.89 Other chest pain (principal); I10 Essential (primary) hypertension; I25.2 Old myocardial infarction; E78.00 Pure hypercholesterolemia, unspecified; J44.9 Chronic obstructive pulmonary disease, unspecified; Z86.73 Personal history of transient ischemic attack (TIA), and cerebral infarction without residual deficits; Z95.0 Presence of cardiac pacemaker

== ENCOUNTER 2020-03-01 13:27 | Emergency (ER) | payer OTHER ==
[~2020-03-01] VITALS: Ht 170.2 cm; Wt 65.3 kg
[2020-03-01 14:04] LABS: ABSOLUTE NEUTROPHILS 4.1 thou/uL (1.4-8.2); BASOPHILS 1.3 % (0.0-2.0); EOSINOPHILS 3.1 % (0.0-3.0); HEMATOCRIT 33.6 % (42.0-52.0); HEMOGLOBIN 10.8 gm/dL (14.0-18.0); LYMPHOCYTES 21.2 % (24.0-44.0); MCH 26.2 pg (26.0-34.0); MCHC 32.2 g/dL (28.0-37.0); MCV 81.2 fL (80.0-100.0); MONOCYTES 11.2 % (1.0-8.0); PLATELET COUNT 249 thou/uL (150-400); POLYS 63.2 % (36.0-66.0); RBC 4.14 mil/uL (4.50-6.00); RDW 20.4 % (10.5-14.5); WBC 6.5 thou/uL (4.0-11.0)
[2020-03-01 14:18] LABS: ANION GAP 13 mmol/L (7-16); BUN 19 mg/dL (7-18); CALCIUM 9.9 mg/dL (8.5-10.1); CHLORIDE 102 mmol/L (98-107); CO2 22 mmol/L (21-32); GLUCOSE 76 mg/dL (74-106); SODIUM 137 mmol/L (136-145)
[2020-03-01 14:28] LABS: TROPONIN-I <0.06 ng/mL (<0.06)
[2020-03-01] MEDS ORDERED: PANTOPRAZOLE SO40 M1 PO (19:46)
[2020-03-01] MEDS ORDERED: ATORVASTATIN CA10 MG PO (19:47)
[2020-03-01] MEDS ORDERED: ESCITALOPRAM OXA5 MG PO (19:48)
[2020-03-01 21:51] VITALS: BP 101/53
--- NOTE | 2020-03-04 09:10 | EKG ---
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: [facility] : 1960 Requested By: Eliel Kat Order Number: [id number] MD: Tj Valero Measurements Intervals [place] Rate: 107 P: 70 [place]: 156 QRS: -7 QRSD: 155 T: 179 QT: 376 QTc: 502 Interpretive Statements Sinus tachycardia Frequent premature ventricular complexes Probable left atrial enlargement Left bundle branch block Compared to ECG 01/29/2020 23:19:02 Left bundle-branch block now present Electronically Signed On 03-04-2020 9:09:12 CDT by Tj Valero [email or web address] <ELECTRONICALLY SIGNED> By: Tj Valero MD, [facility] 03/04/20 0909 1331 1331 Tj Valero MD, [facility] /EPI
== END 2020-03-01 21:55 | disposition home or self-care (01) ==
LOC: ER 13:27
PROVIDERS: Emergency Medicine
DX: F15.10 Other stimulant abuse, uncomplicated (principal); R07.89 Other chest pain; I10 Essential (primary) hypertension; E78.00 Pure hypercholesterolemia, unspecified; J44.9 Chronic obstructive pulmonary disease, unspecified; G89.29 Other chronic pain; F17.210 Nicotine dependence, cigarettes, uncomplicated; Z88.6 Allergy status to analgesic agent; Z88.8 Allergy status to other drugs, medicaments and biological substances; Z86.73 Personal history of transient ischemic attack (TIA), and cerebral infarction without residual deficits

== ENCOUNTER 2020-05-18 03:49 | Emergency (ER) | payer OTHER ==
[~2020-05-18] VITALS: Ht 170.2 cm; Wt 68.0 kg
[~2020-05-18 03:49] MED LIST changes: +ESCITALOPRAM OXA5 MG PO
[2020-05-18 05:08] LABS: EOSINOPHILS 2.9 % (0.0-3.0); HEMATOCRIT 31.1 % (42.0-52.0); HEMOGLOBIN 10.4 gm/dL (14.0-18.0); LYMPHOCYTES 14.7 % (24.0-44.0); MCH 26.7 pg (26.0-34.0); MCHC 33.3 g/dL (28.0-37.0); PLATELET COUNT 340 thou/uL (150-400); POLYS 71.4 % (36.0-66.0); RBC 3.89 mil/uL (4.50-6.00); RDW 16.9 % (10.5-14.5)
[2020-05-18 05:17] LABS: ANION GAP 7 mmol/L (7-16); BUN 9 mg/dL (7-18); CALCIUM 8.8 mg/dL (8.5-10.1); CHLORIDE 100 mmol/L (98-107); CO2 27 mmol/L (21-32); CREATININE 0.9 mg/dL (0.7-1.3); GLUCOSE 87 mg/dL (74-106); POTASSIUM 4.3 mmol/L (3.5-5.1); SODIUM 134 mmol/L (136-145)
[2020-05-18 05:27] LABS: ALBUMIN 3.7 g/dL (3.4-5.0); SGOT 17 U/L (15-37); SGPT 21 U/L (30-65); TOTAL BILIRUBIN 0.2 mg/dL (0.2-1.0); TOTAL PROTEIN 7.1 g/dL (6.4-8.2); TROPONIN-I <0.06 ng/mL (<0.06)
[2020-05-18 05:36] LABS: DIRECT BILIRUBIN < 0.1 mg/dL (<0.1-0.2)
[2020-05-18 05:52] LABS: AMP/METHAMP Negative (Negative); BARBITURATES Negative (Negative); BENZODIAZEPINES Negative (Negative); COCAINE Negative (Negative); METHADONE Negative (Negative); OPIATES POSITIVE (Negative); PCP Negative (Negative)
[2020-05-18 07:39] VITALS: BP 120/73
--- NOTE | 2020-05-18 11:52 | EKG ---
[facility] [address] [place] [address] ELECTROCARDIOGRAM REPORT Name: MANUELKENA [facility] [id number] Admission: 05/18/20 Attend Phys: Discharge: 05/18/20 Date of : 58 Report #: [id number] THIS REPORT FOR: cc: GAETANO - Patricia family physician/PCP GAETANO - Patricia family physician/PCP Robert Westfall MD ~ THIS REPORT FOR: //name// [facility] ED Test Date: 2020-05-18 Test Time: 04:02:41 Pat Name: KENA JACKSON Department: Room: Gender: Mobile Qa Tester: greg richardson : 1960 Requested By: Yoanna Sweeney Order Number: [id number] MD: Robert Westfall Measurements Intervals [place] Rate: 87 P: 61 [place]: 153 QRS: -10 QRSD: 155 T: 194 QT: 411 QTc: 495 Interpretive Statements Sinus rhythm Ventricular premature complex Probable left atrial enlargement Left bundle branch block Compared to ECG 03/01/2020 13:31:42 Sinus tachycardia no longer present Electronically Signed On 05-18-2020 11:51:39 CDT by Robert Westfall [email or web address] <ELECTRONICALLY SIGNED> By: Robert Westfall MD 05/18/20 1151 0402 0402 Robert eWstfall MD /EPI
== END 2020-05-18 07:40 | disposition still patient (30) ==
LOC: ER 03:49
PROVIDERS: Emergency Medicine
DX: R07.89 Other chest pain (principal); F17.210 Nicotine dependence, cigarettes, uncomplicated; F12.10 Cannabis abuse, uncomplicated; I25.2 Old myocardial infarction; J44.9 Chronic obstructive pulmonary disease, unspecified; I10 Essential (primary) hypertension; E78.00 Pure hypercholesterolemia, unspecified; G89.29 Other chronic pain; Z88.8 Allergy status to other drugs, medicaments and biological substances; Z79.899 Other long term (current) drug therapy

== ENCOUNTER 2020-06-07 23:52 | Emergency (ER) | payer OTHER ==
[~2020-06-07] VITALS: Ht 170.2 cm; Wt 68.0 kg
[2020-06-08 00:16] LABS: HEMATOCRIT 26.6 % (42.0-52.0); HEMOGLOBIN 8.8 gm/dL (14.0-18.0); MCHC 33.2 g/dL (28.0-37.0); MCV 78.2 fL (80.0-100.0); RBC 3.4 mil/uL (4.50-6.00); RDW 16.3 % (10.5-14.5); WBC 4.5 thou/uL (4.0-11.0)
[2020-06-08 00:20] LABS: ANION GAP 7 mmol/L (7-16); BUN 13 mg/dL (7-18); CALCIUM 8.9 mg/dL (8.5-10.1); CHLORIDE 101 mmol/L (98-107); CO2 27 mmol/L (21-32); CREATININE 1.2 mg/dL (0.7-1.3); GLUCOSE 97 mg/dL (74-106); SODIUM 135 mmol/L (136-145)
[2020-06-08 00:29] LABS: TROPONIN-I <0.06 ng/mL (<0.06)
[2020-06-08 01:23] VITALS: BP 108/56
--- NOTE | 2020-06-10 07:44 | EKG ---
[facility] [address] [place] [address] ELECTROCARDIOGRAM REPORT Name: MANUELKENA [facility] [id number] Admission: 06/07/20 Attend Phys: Discharge: 06/08/20 Date of : 58 Report #: [id number] THIS REPORT FOR: cc: GAETANO Gomez family physician/PCP GAETANO - Patricia family physician/PCP Tj Valero MD [facility] THIS REPORT FOR: //name// [facility] ED Test Date: 2020-06-08 Test Time: 00:00:38 Pat Name: KENA JACKSON Department: Room: Gender: Dry Transfer Worker: STOLED : 1960 Requested By: Yoanna Sweeney Order Number: [id number] MD: Tj Valero Measurements Intervals [place] Rate: 82 P: 55 ND: 143 QRS: -16 QRSD: 142 T: 178 QT: 404 QTc: 472 Interpretive Statements Sinus rhythm Vntricular premature complexes Probable left atrial enlargement Left bundle branch block Compared to ECG 05/18/2020 04:02:41 No significant changes Electronically Signed On 06-10-2020 7:43:50 CDT by Tj Valero [email or web address] <ELECTRONICALLY SIGNED> By: Tj Valero MD, [facility] 06/10/20 0743 0000 0000 Tj Valero MD, [facility] /EPI
== END 2020-06-08 01:58 | disposition home or self-care (01) ==
LOC: ER 23:52
PROVIDERS: Emergency Medicine
DX: R07.89 Other chest pain (principal); I10 Essential (primary) hypertension; E78.00 Pure hypercholesterolemia, unspecified; J44.9 Chronic obstructive pulmonary disease, unspecified; G89.29 Other chronic pain; F17.210 Nicotine dependence, cigarettes, uncomplicated; Z88.6 Allergy status to analgesic agent; Z88.8 Allergy status to other drugs, medicaments and biological substances; Z86.73 Personal history of transient ischemic attack (TIA), and cerebral infarction without residual deficits

== ENCOUNTER 2020-08-04 08:21 | Emergency (ER) | payer OTHER ==
[~2020-08-04] VITALS: Ht 170.2 cm; Wt 63.5 kg
[2020-08-04 09:28] LABS: HEMATOCRIT 35.1 % (42.0-52.0); HEMOGLOBIN 11.2 gm/dL (14.0-18.0); MCH 25.9 pg (26.0-34.0); MCHC 31.9 g/dL (28.0-37.0); MCV 81.2 fL (80.0-100.0); PLATELET COUNT 264 thou/uL (150-400); RBC 4.32 mil/uL (4.50-6.00); RDW 23.4 % (10.5-14.5); WBC 5.1 thou/uL (4.0-11.0)
[2020-08-04 09:41] LABS: ANION GAP 14 mmol/L (7-16); BUN 9 mg/dL (7-18); CALCIUM 8.9 mg/dL (8.5-10.1); CHLORIDE 103 mmol/L (98-107); CO2 22 mmol/L (21-32); CREATININE 0.8 mg/dL (0.7-1.3); GLUCOSE 84 mg/dL (74-106); POTASSIUM 3.7 mmol/L (3.5-5.1); SODIUM 139 mmol/L (136-145)
[2020-08-04 09:51] LABS: ALBUMIN 3.8 g/dL (3.4-5.0); DIRECT BILIRUBIN < 0.1 mg/dL (<0.1-0.2); SGOT 15 U/L (15-37); SGPT 19 U/L (30-65); TOTAL BILIRUBIN 0.3 mg/dL (0.2-1.0); TOTAL PROTEIN 7.7 g/dL (6.4-8.2); TROPONIN-I <0.06 ng/mL (<0.06)
[2020-08-04 10:50] LABS: ABSOLUTE NEUTROPHILS 3.6 thou/uL (1.4-8.2); PLATELET ESTIMATE NORMAL
[2020-08-04 11:05] VITALS: BP 110/61
--- NOTE | 2020-08-04 11:56 | EKG ---
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: [facility] : 1960 Requested By: Yonana Sweeney Order Number: [id number] MD: Tj Valero Measurements Intervals [place] Rate: 96 P: 88 NM: 140 QRS: -54 QRSD: 161 T: 128 QT: 402 QTc: 508 Interpretive Statements Atrial-sensed ventricular-paced complexes No further analysis attempted due to paced rhythm Compared to ECG 06/08/2020 00:00:38 Pacing is now present Electronically Signed On 08-04-2020 11:56:28 CDT by Tj Valero [email or web address] <ELECTRONICALLY SIGNED> By: Tj Valero MD, [facility] 08/04/20 1156 Tj Valero MD, [facility] /EPI
== END 2020-08-04 13:01 | disposition home or self-care (01) ==
LOC: ER 08:21
PROVIDERS: Emergency Medicine
DX: F15.10 Other stimulant abuse, uncomplicated (principal); R07.9 Chest pain, unspecified; I25.2 Old myocardial infarction; I10 Essential (primary) hypertension; E78.00 Pure hypercholesterolemia, unspecified; J44.9 Chronic obstructive pulmonary disease, unspecified; F17.210 Nicotine dependence, cigarettes, uncomplicated; Z95.0 Presence of cardiac pacemaker; Z86.73 Personal history of transient ischemic attack (TIA), and cerebral infarction without residual deficits; Z79.899 Other long term (current) drug therapy; Z79.82 Long term (current) use of aspirin; Z88.8 Allergy status to other drugs, medicaments and biological substances; Z88.6 Allergy status to analgesic agent

== ENCOUNTER 2021-06-30 19:42 | Emergency (ER) | payer OTHER ==
[~2021-06-30] VITALS: Ht 175.3 cm; Wt 70.3 kg
--- NOTE | ~2021-06-30 | EMS ---
[address] [address] EMS Patient Care Report Name: KENA JACKSON Room #: DEP [facility]#: [id number] Admission: 06/30/21 Attend Phys: Discharge: 06/30/21 Date of : 58 Report #: [id number] THIS REPORT FOR: //name// Report Transmitted: 07/01/2021 15:09 EMS Care Summary [place], [place]/[facility] Incident [id number] @ 06/30/2021 19:06 Incident Location [address] [place] [address] Patient KENA JACKSON Male, 60 Years 1960 Patient Address [address] [place] [address] Patient History Hypertension (HTN),Pacemaker/AICD,Smoking,Stroke/CVA,Substance Abuse,Hyperlipidemia,Anxiety,Coronary Artery Disease (CAD),Myocardial Infarction (NE), Patient Allergies Acetaminophen,Ibuprofen,Albuterol, Patient Medications Nitroglycerin, Metoprolol, Atorvastatin, ASA, Plavix, Lisinopril, Chief Complaint chest pain that travels down right arm Disposition Transported No Lights/[place] Dispatch Reason Chest Pain (Non-Traumatic) Transported To [facility] Narrative Patient was found outside a fire station with firefighters by his side. The patient explained that he developed chest pain about an hour ago while riding in a car. The patient told ems that nothing makes the pain feel better and it [facility] [address] [place] [address] EMS Patient Care Report Name: KENA JACKSON Room #: DEP [facility].R.#: [id number] Admission: 06/30/21 Attend Phys: Discharge: 06/30/21 Date of : 58 Report #: [id number] feels like a crushing pain. The patient was treated and transported to the er. Initial Vitals @PTAP: 98,R: 18,BP: 121/68,Pain: 9/10,GCS: 15,SpO2: 92,Revised Trauma: 12,NE Suspected: false @19:21P: 95,R: 18,BP: 111/72,Pain: 9/10,GCS: 15,SpO2: 100,Revised Trauma: 12, Assessments @19:14MENTAL:Place Oriented,Time Oriented,Person Oriented,Event Oriented,SKIN:HEENT:Head/Face: No Abnormalities,Neck/Airway: No Abnormalities,LUNG SOUNDS:General: No Abnormalities,ABDOMEN:General: No Abnormalities,PELVIS//GI:EXTREMITIES:Left Arm: No Abnormalities,Right Arm: No Abnormalities,Left Leg: No Abnormalities,Right Leg: No Abnormalities,PULSE:NEURO:No Abnormalities, Impression Chest Pain / Discomfort Procedures @YTV20-Swpv ECGResponse: UnchangedSucceeded@PTA3-Lead ECGResponse: UnchangedSucceeded@19:14ALS AssessmentResponse: UnchangedSucceeded@19:15Saline Lock 0cc (20 ga) Site: Antecubital-LeftResponse: UnchangedFailed@19:16Saline Lock 10cc (20 ga) Site: Forearm-RightResponse: UnchangedSucceeded@19:14Aspirin - 324 Milligrams (mg) - OralResponse: Unchanged@19:17Nitrostat - 0.4 Milligrams (mg) - SublingualResponse: Unchanged Timeline TUB WASH OPERATOR,12-Lead ECG,Response: UnchangedSucceeded, TUB WASH OPERATOR,3-Lead ECG,Response: UnchangedSucceeded, TUB WASH OPERATOR,BP: 121/68 M,PULSE: 98,RR: 18 R,SPO2: 92 Ox,ETCO2: ,BG: ,PAIN: 9,GCS: 15, 19:05,Call Received 19:05,Dispatch Notified 19:06,Dispatched 19:07,En Route 19:12,On Scene 19:12,At Patient 19:14,ALS Assessment,Response: UnchangedSucceeded, 19:14,Aspirin - 324 Milligrams (mg) - Oral,Response: Unchanged 19:15,Saline Lock 0cc 20 ga Site: Antecubital-Left,Response: UnchangedFailed, 19:16,Saline Lock 10cc 20 ga Site: Forearm-Right,Response: UnchangedSucceeded, 19:17,Nitrostat - 0.4 Milligrams (mg) - Sublingual,Response: Unchanged 19:21,BP: 111/72 M,PULSE: 95,RR: 18 R,SPO2: 100 Ox,ETCO2: ,BG: ,PAIN: 9,GCS: 15, 19:25,Depart Scene 19:44,At Destination 20:04,Call Closed [facility] [address] [place] [address] EMS Patient Care Report Name: KENA JACKSON Room #: DEP [facility]#: [id number] Admission: 06/30/21 Attend Phys: Discharge: 06/30/21 Date of : 58 Report #: [id number] Disclaimer v1.1 Copyright 202 [employer] This EMS Care Summary contains data elements from the applicable legal record (which may be displayed differently). It is designed to provide pertinent information for the following purposes: continuity of care, clinical quality, and state data reporting. The complete legal record is available to ED staff and administrators of the receiving hospital in [facility]'s Patient Tracker. All data is provided "as is."
[2021-06-30 20:09] LABS: ABSOLUTE NEUTROPHILS 3.2 thou/uL (1.4-8.2); BASOPHILS 1.5 % (0.0-2.0); EOSINOPHILS 4.4 % (0.0-3.0); HEMATOCRIT 31.7 % (42.0-52.0); HEMOGLOBIN 10.7 gm/dL (14.0-18.0); LYMPHOCYTES 17.4 % (24.0-44.0); MCH 30.4 pg (26.0-34.0); MCHC 33.8 g/dL (28.0-37.0); MCV 89.7 fL (80.0-100.0); MONOCYTES 13.6 % (1.0-8.0); PLATELET COUNT 212 thou/uL (150-400); POLYS 63.1 % (36.0-66.0); RBC 3.53 mil/uL (4.50-6.00); RDW 14.9 % (10.5-14.5)
[2021-06-30 20:23] LABS: ANION GAP 3 mmol/L (7-16); BUN 7 mg/dL (7-18); CALCIUM 8.5 mg/dL (8.5-10.1); CHLORIDE 103 mmol/L (98-107); CO2 31 mmol/L (21-32); CREATININE 0.9 mg/dL (0.7-1.3); GLUCOSE 96 mg/dL (74-106); SODIUM 137 mmol/L (136-145)
[2021-06-30 20:34] LABS: ALBUMIN 3.2 g/dL (3.4-5.0); LIPASE 164 U/L (73-393); SGOT 21 U/L (15-37); SGPT 26 U/L (16-63); TOTAL BILIRUBIN 0.2 mg/dL (0.2-1.0); TOTAL PROTEIN 6.5 g/dL (6.4-8.2); TROPONIN-I <0.06 ng/mL (<0.06)
[2021-06-30 21:36] VITALS: BP 114/72
--- NOTE | 2021-07-01 07:49 | EKG ---
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: : 1960 Requested By: Atif Mirza Order Number: [id number] MD: Charan Villa Measurements Intervals [place] Rate: 89 P: 71 [place]: 150 QRS: 17 QRSD: 162 T: 214 QT: 396 QTc: 482 Interpretive Statements Ventricular-paced rhythm No further analysis attempted due to paced rhythm Compared to ECG 08/04/2020 08:29:07 Atrial-sensed ventricular-paced complex(es) or rhythm no longer present Electronically Signed On 07-01-2021 7:49:10 CDT by Charan Villa [email or web address] <ELECTRONICALLY SIGNED> By: Charan Villa MD, [facility] 07/01/21 0749 46 46 Charan Villa MD, [facility] /EPI
== END 2021-06-30 21:37 | disposition home or self-care (01) ==
LOC: ER 19:42
PROVIDERS: Emergency Medicine
DX: R07.89 Other chest pain (principal); F19.10 Other psychoactive substance abuse, uncomplicated; I10 Essential (primary) hypertension; E78.00 Pure hypercholesterolemia, unspecified; J44.9 Chronic obstructive pulmonary disease, unspecified; K29.70 Gastritis, unspecified, without bleeding; F17.210 Nicotine dependence, cigarettes, uncomplicated; Z79.899 Other long term (current) drug therapy; Z88.6 Allergy status to analgesic agent; Z88.8 Allergy status to other drugs, medicaments and biological substances